=== PATIENT | female | born 1995 | race African-American/Black ===

== ENCOUNTER 2020-12-15 19:02 | Emergency (ER) | payer BC, OTHER, SELFPAY ==
--- NOTE | 2020-12-15 19:08 | ED.URI ---
HPI - URI/Sore Throat General Chief Complaint: Upper Respiratory Infection Stated Complaint: Chest Pain,Difficulty Breathing Time Seen by Provider: 12/15/20 19:08 Source: patient and RN notes reviewed History of Present Illness HPI Narrative: Patient is a 25-year-old female who presents the urgent care with complaints of shortness of breath and cough. Patient states that she has had these issues for the last month and has been in the hospital 3 different times for her symptoms. Patient states her PCP is currently working her up for a possible hormonal imbalance or autoimmune disorder. Patient states that she has a blood work on Tuesday and will follow up with her PCP as scheduled. Patient states that the symptoms are not new but are recurrent. Patient states that she was just discharged from the hospital November 27. Denies of any wheezing or cough. Currently denies of chest pain. Patient states that when she experiences the chest pain that is substernal. Patient states she is also had an increase in her heart rate. States that her cardiac work-up at the hospital was negative and they did not place her on any heart medications. Patient was placed on ibuprofen for her pains and nausea medication because she is not eating . No other acute complaints. No acute distress noted. Patient aware of the plan of care. Some parts of this dictation were generated by voice recognition software and may contain typographical and/or grammatical inaccuracies. Related Data Home Medications Medication Instructions Recorded Confirmed Nausea Med. 12/15/20 Allergies Allergy/AdvReac Type Severity Reaction Status Date / Time No Known Allergies Allergy Verified 12/15/20 19:06 Review of Systems Review of Systems: Narrative: CONSTITUTIONAL: Denies fever, chills, or sweats. EYES: Denies visual changes, redness, or discharge. ENT: Denies rhinorrhea, congestion, sore throat, or otalgia. CARDIOVASCULAR: Reports of intermittent chest pains with tachycardia RESPIRATORY: Denies cough. Reports of dyspnea GASTROINTESTINAL: Denies abdominal pain, nausea, vomiting, or diarrhea. GENITOURINARY: Denies dysuria or hematuria. SKIN: Denies rash or itching. MUSCULOSKELETAL: Denies back pain, joint pain, or myalgia. NEUROLOGIC: Denies headache, numbness, or weakness. All other systems reviewed are negative, except as documented in HPI. PMFSH Comments At the time of my signature, I reviewed and agree with the nursing past medical, surgical, social, and family history. There is no relevant family history pertinent to the patient complaint. Exam Narrative: Exam Narrative: GENERAL: This is a well-nourished, well-developed patient, in no apparent distress. HEAD: normocephalic, atraumatic. EYES: PERRL. Sclera clear/white. Vision is grossly intact. EARS: External ears normal NOSE: External nose normal with no obvious nasal discharge, nares without redness, no rhinorrhea. THROAT: Mucous membranes moist NECK: Neck supple CARDIOVASCULAR: Tachycardic, sinus rhythm without murmurs, gallops, or rubs. Mild substernal tenderness RESPIRATORY: Clear to auscultation. Breath sounds equal bilaterally. No wheezes, rales, or rhonchi. SKIN: warm, intact with no suspicious lesions or rash, good texture and turgor. NEURO: awake, alert, and oriented to person, place and time. There were no obvious focal neurologic abnormalities. EXTREMITIES: No clubbing, cyanosis, or edema. Course Vital Signs Vital signs: Vital Signs Temperature 97.3 F L 12/15/20 19:18 Pulse Rate 111 H 12/15/20 19:18 Respiratory Rate 18 12/15/20 19:18 Blood Pressure 133/86 12/15/20 19:18 Pulse Oximetry 100 12/15/20 19:18 Temperature 97.3 F L 12/15/20 19:20 Pulse Rate 111 H 12/15/20 19:20 Respiratory Rate 18 12/15/20 19:20 Blood Pressure 133/86 12/15/20 19:20 Pulse Oximetry 100 12/15/20 19:20 Reviewed MDM - URI/Sore Throat MDM Narrative Medical decision making narrative
[2020-12-15 19:18] VITALS: BP 133/86; PULSE 111; RESP 18; TEMP 36.3; O2SAT 100
--- NOTE | 2020-12-15 19:19 | ECG_ITS ---
Measurements Intervals [place] Rate: 85 P: 72 GA: 183 QRS: 55 QRSD: 76 T: 50 QT: 345 QTc: 411 Interpretive Statements SINUS RHYTHM POSSIBLE LEFT ATRIAL ENLARGEMENT INCOMPLETE RIGHT BUNDLE BRANCH BLOCK BORDERLINE T WAVE ABNORMALITY- ANTERIOR LEADS BASELINE WANDER- V3 BORDERLINE ECG Electronically Signed On 12-16-2020 16:23:05 CDT by Zay Ball D.O.
[2020-12-15 19:20] VITALS: BP 133/86; PULSE 111; RESP 18; TEMP 36.3; O2SAT 100
== END 2020-12-15 19:38 | disposition home or self-care (01) ==
PROVIDERS: Emergency Provider Nurse Practitioner Family
DX: F41.9 Anxiety disorder, unspecified (principal); R06.02 Shortness of breath
CPT/HCPCS: 93005; 99203; G0463

== ENCOUNTER 2021-12-24 16:07 | Emergency (ER) | payer BC, OTHER, SELFPAY ==
[2021-12-24] VITALS (10 sets, daily range): BP systolic 101–116; BP diastolic 69–83; PULSE 75–84; RESP 14–16; TEMP 37.6; O2SAT 92–100
--- NOTE | ~2021-12-24 | XR_ITS ---
XR chest 2V DATE: 12/24/2021 17:12 INDICATION: Chest pain, fever, chills. Covid-positive. TECHNIQUE: AP and lateral chest COMPARISON: None FINDINGS: Normal heart size. No hilar or mediastinal enlargement. No pulmonary infiltrate or consolid ation, pleural effusion or pulmonary vascular congestion or pneumothorax. IMPRESSION: No active cardiopulmonary disease Reviewed, dictated and finalized at location B.
--- NOTE | 2021-12-24 16:43 | ECG_ITS ---
Measurements Intervals [place] Rate: 86 P: 89 VA: 171 QRS: 74 QRSD: 92 T: 0 QT: 334 QTc: 400 Interpretive Statements SINUS RHYTHM BORDERLINE T WAVE ABNORMALITY- DIFFUSE LEADS BORDERLINE ECG Electronically Signed On 12-24-2021 20:21:05 CDT by Zay Ball D.O.
--- NOTE | 2021-12-24 17:16 | PC.NURSE ---
unsuccessfully attempted to obtain blood sample in triage.
--- NOTE | 2021-12-24 21:38 | ED.CHESTPAIN ---
HPI - Chest Pain General Chief Complaint: Chest Pain <QIANA Crockett Last Filed: 12/25/21 02:44> Stated Complaint: Chest Pain, COVID + <QIANA Crockett Last Filed: 12/25/21 02:44> Time Seen by Provider: 12/24/21 21:09 <QIANA Crockett Last Filed: 12/25/21 02:44> History of Present Illness HPI narrative: Patient is a 26-year-old female here for evaluation of body aches, fevers, generalized fatigue, cough, nausea and vomiting for the past 2 days. Patient took a COVID test at home that was positive yesterday. She is not vaccinated against COVID. States that she came in today because of some chest tightness in the center of her chest, for which she attempted ibuprofen but was unable to keep it down. Denies any abdominal pain, constipation, leg cramping, shortness of breath, syncope, use of oral contraceptives, smoking history. <QIANA Crockett Last Filed: 12/25/21 02:44> Related Data Allergies/Adverse Reactions: Allergies Allergy/AdvReac Type Severity Reaction Status Date / Time No Known Allergies Allergy Verified 12/24/21 16:49 <QIANA Crockett Last Filed: 12/25/21 02:44> Review of Systems Review of Systems: Gen.: Reports fevers Eyes: Denies eye pain or visual change ENT: Reports congestion Respiratory: Reports cough CV: Reports chest pain GI: Reports nausea and vomiting. Denies abdominal pain or diarrhea denies burning, urgency, frequency or hematuria Musculoskeletal: Denies back pain or muscle pain Neuro: Denies numbness, tingling, weakness or focal weakness Skin: Denies rash Except as documented, all other systems reviewed and negative <QIANA Crockett Last Filed: 12/25/21 02:44> Exam Narrative: APPEARANCE: Uncomfortable appearing. Head: Normocephalic and atraumatic. EYES: PERRLA/EOMI, conjunctivae clear NOSE: No nasal drainage EARS: External ear normal in appearance THROAT: Oropharynx is clear. Mucous membranes are moist. NECK: Supple. No adenopathy, no masses. RESPIRATORY: Airway patent, respirations nonlabored. Clear to auscultation bilaterally, no rales, rhonchi, wheezing. CARDIOVASCULAR: Regular rate and rhythm without murmurs, rubs, or gallops. ABDOMINAL: Normoactive bowel sounds. Soft, nontender, nondistended. No rebound tenderness or guarding. MUSCULOSKELETAL: Extremities are warm and well-perfused. Moves all extremities well. No edema. NEURO: Normal speech. No focal neurologic deficits. SKIN: Skin is warm and dry. No rashes. PSYCHIATRIC: Normal affect/mood. <Tammi Hammer PA-C - Last Filed: 12/25/21 02:44> Course NETWORK SUPPORT ANALYST/PA Physician Supervision For this patient encounter, I reviewed the NETWORK SUPPORT ANALYST or PA documentation, treatment plan, and medical decision making <Guilherme Santos MD - Last Filed: 12/25/21 03:28> Vital Signs Vital signs: Vital Signs Temperature 99.7 F H 12/24/21 16:44 Pulse Rate 84 12/24/21 16:44 Respiratory Rate 14 12/24/21 16:44 Blood Pressure 105/69 12/24/21 16:44 Pulse Oximetry 100 12/24/21 16:44 Oxygen Delivery Room Air 12/24/21 16:44 Temperature 99.7 F H 12/24/21 16:44 Pulse Rate 79 12/24/21 23:32 Respiratory Rate 16 12/24/21 23:32 Blood Pressure 101/74 12/24/21 23:31 Pulse Oximetry 99 12/24/21 23:32 Oxygen Delivery Room Air 12/24/21 16:44 <Tammi Hammer PA-C - Last Filed: 12/25/21 02:44> Vital Signs Temperature 99.7 F H 12/24/21 16:44 Pulse Rate 84 12/24/21 16:44 Respiratory Rate 14 12/24/21 16:44 Blood Pressure 105/69 12/24/21 16:44 Pulse Oximetry 100 12/24/21 16:44 Oxygen Delivery Room Air 12/24/21 16:44 Temperature 99.7 F H 12/24/21 16:44 Pulse Rate 79 12/24/21 23:32 Respiratory Rate 16 12/24/21 23:32 Blood Pressure 101/74 12/24/21 23:31 Pulse Oximetry 99 12/24/21 23:32 Oxygen Delivery Room Air 12/24/21 16:44 <Guilherme Santos MD - [place]
[2021-12-24] MEDS: ONDANSETRON INJ 4 MG/2 ML VIAL IV PUSH (22:11)
[2021-12-24] MEDS: SODIUM CHLORIDE 0.9% IV 1,000 ML 999 ML IV CONT (22:11)
[2021-12-24 22:19] LABS: Basophils Percent Auto 0.9 % (0.2-1.2); Eosinophils Percent Auto 0.3 % (0-4.4); Hematocrit 40.2 % (37.0-47.0); Hemoglobin 12.2 g/dL (12.0-15.0); Lymphocytes Absolute Auto 1.71 K/mm3 (0.9-3.2); Lymphocytes Percent Auto 49.3 % (18.3-44.2); Mean Corpuscular HGB Conc 30.3 g/dl (32-36); Mean Corpuscular Volume 82.4 fl (80-100); Monocytes Absolute Auto 0.6 K/mm3 (0.1-0.6); Monocytes Percent Auto 15.9 % (2.6-8.5); Neutrophils Absolute Auto 1.2 K/mm3 (1.3-6.7); Neutrophils Percent Auto 33.6 % (45.5-73.1); Platelet Count Result 264 k/mm3 (150-375); Red Blood Count 4.88 M/mm3 (4.2-5.4); Red Cell Distribution Width 16.2 % (11.5-14.5); White Blood Count 3.5 K/mm3 (4.5-10.0)
[2021-12-24 22:31] LABS: Prothrombin Time 13.2 Seconds (11.1-14.7)
[2021-12-24 22:53] LABS: Partial Thromboplastin Time 30.4 SECONDS (22.3-36.8)
[2021-12-24 23:06] LABS: Alanine Aminotransferase 14 U/L (6-35); Albumin Level 3.9 g/dL (3.5-5.1); Alkaline Phosphatase 67 U/L (38-126); Anion Gap 5 mmol/L (8-16); Aspartate Amino Transferase 28 U/L (14-36); Bilirubin,Total 0.7 mg/dL (0.2-1.3); Blood Urea Nitrogen 13 mg/dL (7-17); Calcium 8.1 mg/dL (8.4-10.2); Carbon Dioxide 27 mmol/L (22-30); Chloride 106 mmol/L (98-107); Estimated CRCL calculation 114 ml/min; Estimated Glomerular Filt Rate > 60; Glucose 84 mg/dL (65-110); Lipase 131 U/L (23-300); Potassium 3.4 mmol/L (3.4-5.0); Sodium 138 mmol/L (137-145)
[2021-12-24 23:17] LABS: Troponin I < 0.012 ng/mL (0.000-0.034)
[2021-12-24] MEDS: ACETAMINOPHEN 500 MG TABLET 1000 MG PO (23:41)
--- NOTE | 2021-12-24 23:57 | PC.NURSE ---
Pt able to keep medications, fluids and crackers down. PO challenge succesful
== END 2021-12-24 23:58 | disposition home or self-care (01) ==
PROVIDERS: Emergency Medicine; Emergency Provider Emergency Medicine
DX: U07.1 COVID-19 (principal); Z28.310 Unvaccinated for COVID-19; R94.31 Abnormal electrocardiogram [ECG] [EKG]
CPT/HCPCS: 36415; 71046; 80053; 83690; 84484; 85025; 85610; 85730; 93005; 96361; 96374; 99284; A9270; J2405; J7030

== ENCOUNTER 2022-06-18 08:39 | Emergency (ER) | payer BC, SELFPAY ==
--- NOTE | ~2022-06-18 | US_ITS ---
EXAMINATION: US venous doppler [facility] DATE: 06/18/2022 09:25 INDICATION: Lower limb swelling TECHNIQUE: Trevizo scale images without and with compression and Doppler images of the bilateral lower e xtremity veins were obtained. COMPARISON: None FINDINGS: The right common femoral vein, profunda femoral vein, femoral vein, popliteal vein, peroneal trunk, p osterior tibial veins, and greater saphenous vein are patent. The left common femoral vein, profunda femoral vein, femoral vein, popliteal vein, peroneal trunk, po sterior tibial veins, and greater saphenous vein are patent. IMPRESSION: 1. Patent bilateral lower extremity veins. No evidence of deep venous thrombosis. Reviewed, dictated and finalized at location B. ENTIALS SPECIALIST IMPRESSION: 1. Patent bilateral lower extremity veins. No evidence of deep venous thrombosi s.
--- NOTE | ~2022-06-18 | XR_ITS ---
EXAMINATION: XR chest 2V DATE: 06/18/2022 10:29 INDICATION: Leg edema. TECHNIQUE: Frontal and lateral views of the chest were obtained. COMPARISON: Chest 2 views 12/24/2021 FINDINGS: The chest demonstrates clear lungs without pneumonia, pleural effusion, or pneumothorax. Th e heart size is normal. IMPRESSION: 1. No acute cardiopulmonary disease. Reviewed, dictated and finalized at location A. TRICAL AUTOMATION ENGINEER
[2022-06-18 08:41] VITALS: BP 122/76; PULSE 70; RESP 14; TEMP 36.6; O2SAT 100
--- NOTE | 2022-06-18 09:05 | PC.NURSE ---
Patient to ultrasound
--- NOTE | 2022-06-18 10:06 | ECG_ITS ---
Measurements Intervals [place] Rate: 58 P: 50 [place]: 202 QRS: 37 QRSD: 90 T: 32 QT: 411 QTc: 404 Interpretive Statements SINUS BRADYCARDIA INCOMPLETE RIGHT BUNDLE BRANCH BLOCK BASELINE ARTIFACT- I, II, AVR, AVL, AVF BORDERLINE ECG COMPARED TO ECG 12/24/2021 16:51:37 SINUS BRADYCARDIA NOW PRESENT Electronically Signed On 06-18-2022 10:43:16 FREELANCE INTERPRETER/TRANSLATOR by Zay Ball D.O.
--- NOTE | 2022-06-18 10:16 | ED.EXTPRO ---
HPI - Extremity Problem General Chief complaint: Extremity Problem,Nontraumatic Stated complaint: foot swelling Time Seen by Provider: 06/18/22 09:46 History of Present Illness HPI Narrative: 27-year-old female presenting to the emergency department for evaluation of lower extremity swelling. Patient states over the course of the last week she has had bilateral lower extremity edema. Patient states for her job she does sit often. Patient states that the symptoms do improve when she elevates her legs but did not improve with ambulation. Patient reports pain in her feet and posterior calf bilaterally. Patient denies any associated chest pain or shortness of breath. Patient denies any prior history of PE or DVT. Patient denies any previous cardiac history. Related Data Allergies Allergy/AdvReac Type Severity Reaction Status Date / Time No Known Allergies Allergy Verified 12/24/21 16:49 Review of Systems Review of Systems: CONSTITUTIONAL: Denies fever, chills, or sweats. EYES: Denies visual changes, redness, or discharge. ENT: Denies rhinorrhea, congestion, sore throat, or otalgia. CARDIOVASCULAR: see HPI RESPIRATORY: Denies cough or dyspnea. GASTROINTESTINAL: Denies abdominal pain, nausea, vomiting, or diarrhea. GENITOURINARY: Denies dysuria or hematuria. SKIN: Denies rash or itching. MUSCULOSKELETAL: See HPI NEUROLOGIC: Denies headache, numbness, or weakness. Exam Narrative: APPEARANCE: Well appearing, no pain, no distress, well-nourished. HEAD: normocephalic, atraumatic. EYES: PERRLA/EOMI, conjunctivae clear. NOSE: Normal no drainage NECK: Supple. No adenopathy, no masses. RESPIRATORY: Airway patent, respirations nonlabored. Clear to auscultation bilaterally, no rales, rhonchi, wheezing. CARDIOVASCULAR: Regular rate and rhythm without murmurs rubs or gallops. ABDOMINAL: Soft, nontender, nondistended, normal bowel sounds MUSCULOSKELETAL: Lower extremity edema of bilateral lower extremities. Tenderness to posterior calves. No localized erythema. No evidence of cellulitis. NEURO: Alert. Cranial nerves II through XII intact. Grossly intact SKIN: Warm, dry. Normal Color Course Course Emergency Course: Patient denies any chest pain or shortness of breath. Patient is not tachycardic nor hypoxic. Patient is afebrile with no leukocytosis. Patient's BNP is not elevated. Chest x-ray shows no acute cardiopulmonary normality. Ultrasound showed no evidence for DVTs bilaterally. Differential diagnosis for patient's edema does include but is not limited to CHF, DVT, idiopathic edema, cellulitis. Patient's work-up shows no evidence of infection. Negative for DVT. Suspect idiopathic edema as the underlying cause for her current edema. Patient was provided a small prescription for Lasix and prescribed and was encouraged to have follow-up with her primary care physician. All questions concerns were addressed and patient was comfortable to plan. Vital Signs Vital signs: Vital Signs Temperature 97.8 F 06/18/22 08:41 Pulse Rate 70 06/18/22 08:41 Respiratory Rate 14 06/18/22 08:41 Blood Pressure 122/76 06/18/22 08:41 Pulse Oximetry 100 06/18/22 08:41 Oxygen Delivery Room Air 06/18/22 08:41 Temperature 97.8 F 06/18/22 08:41 Pulse Rate 75 06/18/22 11:46 Respiratory Rate 18 06/18/22 11:46 Blood Pressure 120/78 06/18/22 11:46 Pulse Oximetry 100 06/18/22 11:46 Oxygen Delivery Room Air 06/18/22 08:41 MDM - Extremity (Nontraumatic) Lab Data 06/18/22 10:31 06/18/22 10:31 Labs: Lab Results 06/18/22 06/18/22 Range/Units 10:31 10:31 WBC 5.9 (4.5-10.0) K/mm3 RBC 4.43 (4.2-5.4) M/mm3 Hgb 11.3 L (12.0-15.0) g/dL Hct 36.5 L (37.0-47.0) % MCV 82.4 (80-100) fl MCH 25.5 L (26-34) pg MCHC 31.0 L (32-36) g/dl RDW 16.9 H (11.5-14.5) % Plt Count 334 (150-375) k/mm3 MPV 10.4 (7.4-10.4) fl Immature Gran % (Auto) 0.2
[2022-06-18 10:40] VITALS: BP 119/84; PULSE 64; RESP 18; O2SAT 99
[2022-06-18 10:44] LABS: Basophils Absolute Auto 0.1 K/mm3 (0.0-0.1); Basophils Percent Auto 1.4 % (0.2-1.2); Eosinophils Absolute Auto 0.3 K/mm3 (0-0.3); Eosinophils Percent Auto 4.2 % (0-4.4); Hematocrit 36.5 % (37.0-47.0); Hemoglobin 11.3 g/dL (12.0-15.0); Immature Granulocyte Absolute 0.01 K/mm3 (0.00-0.031); Immature Granulocyte Percent A 0.2 % (0-0.5); Lymphocytes Absolute Auto 2.33 K/mm3 (0.9-3.2); Lymphocytes Percent Auto 39.6 % (18.3-44.2); Mean Corpuscular Hemoglobin 25.5 pg (26-34); Mean Corpuscular Volume 82.4 fl (80-100); Mean Platelet Volume 10.4 fl (7.4-10.4); Monocytes Absolute Auto 0.4 K/mm3 (0.1-0.6); Neutrophils Absolute Auto 2.8 K/mm3 (1.3-6.7); Neutrophils Percent Auto 47.6 % (45.5-73.1); Platelet Count Result 334 k/mm3 (150-375); Red Blood Count 4.43 M/mm3 (4.2-5.4); Red Cell Distribution Width 16.9 % (11.5-14.5); White Blood Count 5.9 K/mm3 (4.5-10.0)
[2022-06-18 10:56] LABS: Alanine Aminotransferase 17 U/L (6-35); Albumin Level 4.6 g/dL (3.5-5.1); Alkaline Phosphatase 66 U/L (38-126); Anion Gap 5 mmol/L (8-16); Aspartate Amino Transferase 24 U/L (14-36); Bilirubin,Total 0.6 mg/dL (0.2-1.3); Blood Urea Nitrogen 10 mg/dL (7-17); Calcium 8.9 mg/dL (8.4-10.2); Carbon Dioxide 29 mmol/L (22-30); Chloride 102 mmol/L (98-107); Estimated CRCL calculation 98 ml/min; Estimated Glomerular Filt Rate > 60; Glucose 90 mg/dL (65-110); Potassium 3.7 mmol/L (3.4-5.0); Sodium 136 mmol/L (137-145)
[2022-06-18 11:04] LABS: NT Pro B Type Natriuretic Pept 32 pg/mL (19.9-100)
[2022-06-18 11:46] VITALS: BP 120/78; PULSE 75; RESP 18; O2SAT 100
== END 2022-06-18 11:46 | disposition home or self-care (01) ==
PROVIDERS: Emergency Provider Emergency Medicine; PCP Physician Assistant
DX: R60.0 Localized edema (principal); R00.1 Bradycardia, unspecified; I45.10 Unspecified right bundle-branch block
CPT/HCPCS: 36415; 71046; 80053; 83880; 85025; 93005; 93970; 99284

== ENCOUNTER 2022-11-14 07:14 | Emergency (ER) | payer BC, SELFPAY ==
--- NOTE | ~2022-11-14 | US_ITS ---
EXAMINATION: US pelvic complete w TV DATE: 11/14/2022 09:26 INDICATION: Pelvic pain for one week Comparison:No prior studies for comparison. TECHNIQUE: Multiple transabdominal and endovaginal sonographic images of the pelvis performed. FINDINGS: The uterus measures 10 x 4.5 x 5.9 cm. The endometrial complex measures 11 mm. The right ovary measures 3.4 x 1.6 x 1.9 cm. and the left ovary measures 3.4 x 2.3 x 2.2 cm. There is a left ovarian cyst measuring 2.1 cm. There are small follicles in each ovary. Normal doppler signal in both ovaries. There is no free fluid in the pelvis. There are no abnormal masses seen on either side. IMPRESSION: 1. Left ovarian cyst measuring 2.1 cm. Reviewed, dictated and finalized at location A.
[2022-11-14 07:17] VITALS: BP 126/83; PULSE 79; RESP 16; TEMP 36.6; O2SAT 100
[2022-11-14 07:48] LABS: Add Urine Microscopic? YES; Appearance Urine Clear (Clear); Bacteria Urine None Seen /hpf; Bilirubin Urine Negative (Negative); Blood Urine Trace (Negative); Color Urine Yellow (Yellow); Glucose Urine UA Negative (Negative); Ketones Urine Trace mg/dL (Negative); Leukocyte Esterase Ur 1+ LEU/UL (Negative); Nitrate Urine Negative (Negative); Non Pathogenic Casts 0-2; Protein Urine Negative (Negative); RBC Urine 0-2 /hpf (0-2); Specific Grav Ur 1.027 (1.001-1.035); Squamous Epithelial Cell Urine Few /hpf (Few); pH Urine 5.5 (5.0-9.0)
[2022-11-14 08:52] LABS: Basophils Absolute Auto 0.1 K/mm3 (0.0-0.1); Basophils Percent Auto 1.1 % (0.2-1.2); Eosinophils Absolute Auto 0.2 K/mm3 (0-0.3); Eosinophils Percent Auto 3.4 % (0-4.4); Hematocrit 34.8 % (37.0-47.0); Hemoglobin 10.8 g/dL (12.0-15.0); Immature Granulocyte Absolute 0.01 K/mm3 (0.00-0.031); Immature Granulocyte Percent A 0.2 % (0-0.5); Lymphocytes Absolute Auto 2.44 K/mm3 (0.9-3.2); Lymphocytes Percent Auto 38.2 % (18.3-44.2); Mean Corpuscular Hemoglobin 25.8 pg (26-34); Mean Corpuscular Volume 83.3 fl (80-100); Mean Platelet Volume 11.9 fl (7.4-10.4); Monocytes Absolute Auto 0.5 K/mm3 (0.1-0.6); Monocytes Percent Auto 8.5 % (2.6-8.5); Neutrophils Absolute Auto 3.1 K/mm3 (1.3-6.7); Neutrophils Percent Auto 48.6 % (45.5-73.1); Platelet Count Result 295 k/mm3 (150-375); Red Blood Count 4.18 M/mm3 (4.2-5.4); Red Cell Distribution Width 16.8 % (11.5-14.5); White Blood Count 6.4 K/mm3 (4.5-10.0)
[2022-11-14] MEDS: ONDANSETRON HCL ODT 4 MG TABLET PO (08:52)
[2022-11-14] MEDS: HYDROcodone/acetaminophen (*CRX) 5-325 MG TABLET 1 TAB PO (08:52)
[2022-11-14 09:00] LABS: Alanine Aminotransferase 18 U/L (6-35); Albumin Level 4.3 g/dL (3.5-5.1); Alkaline Phosphatase 61 U/L (38-126); Anion Gap 7 mmol/L (8-16); Aspartate Amino Transferase 24 U/L (14-36); Bilirubin,Total 0.9 mg/dL (0.2-1.3); Blood Urea Nitrogen 14 mg/dL (7-17); Calcium 8.9 mg/dL (8.4-10.2); Carbon Dioxide 27 mmol/L (22-30); Chloride 104 mmol/L (98-107); Estimated CRCL calculation 133 ml/min; Estimated Glomerular Filt Rate > 60; Glucose 89 mg/dL (65-110); Potassium 3.9 mmol/L (3.4-5.0); Sodium 138 mmol/L (137-145)
--- NOTE | 2022-11-14 11:08 | ED.GENADULT ---
HPI - General Adult General Chief complaint: Urogenital-Female Stated complaint: pelvic pain/bleeding Time Seen by Provider: 11/14/22 07:36 History of Present Illness HPI narrative: Patient is a 27-year-old female who presents ER with lower pelvic pain. Ongoing for 2 days. Associated with vaginal bleeding with discharge. Reports she had her menstrual period 10 days ago that lasted for 3 days then she was normal. She reports back in September she had gonorrhea/chlamydia/trichomoniasis. She had a test of cure for the gonorrhea and chlamydia after being treated appropriately. She was tested for trichomonas again she was still positive. Patient has had no sexual intercourse since original diagnosis of STI. She denies any fevers or chills or sweats. No known history of ovarian cyst. No history of kidney stones. Denies alleviating factors. Related Data Allergies Allergy/AdvReac Type Severity Reaction Status Date / Time No Known Allergies Allergy Verified 11/14/22 07:30 Review of Systems Review of Systems: All systems reviewed & are unremarkable except as noted in HPI and below Constitutional: Constitutional: Denies chills and Denies fever(s) ENT: Denies nasal congestion and Denies sore throat Cardiovascular: Cardiovascular: Denies chest pain, Denies rapid heart rate and Denies radiating jaw, neck or arm pain Respiratory: Respiratory: Denies cough and Denies dyspnea Gastrointestinal: Gastrointestinal: Reports abdominal pain, Denies nausea and Denies vomiting Genitourinary: Genitourinary: Reports abnormal vaginal bleeding, Denies dysuria, Reports pelvic pain and Reports vaginal discharge PMFSH Past Medical History Medical History (Updated 11/14/22 @ 18:09 by Maycol Rausch MD) Healthy female adult Surgical History Surgical History (Updated 11/14/22 @ 18:09 by Maycol Rausch MD) No history of previous surgery Exam Narrative: GENERAL: Well-appearing, well-nourished, and in no acute distress. HEAD: Normocephalic, atraumatic. EYES: PERRL and EOMI. ENT: Mucous membranes moist. CHEST: Clear to auscultation. No respiratory distress. HEART: Regular rate and rhythm. Normal peripheral pulses. ABDOMEN: Soft, palpation bilateral lower quadrants without guarding, nondistended. : Normal-appearing external genitalia. Rectal exam with moderate amount of vaginal discharge without vaginal bleeding. Normal-appearing cervix with closed cervical os. No CMT EXTREMITIES: Normal range of motion. No edema. SKIN: Warm, dry, no rash. NEURO: Alert and oriented x3. PSYCH: Normal mood and affect. Course Course Emergency Course: Patient resting comfortably. Informed of results. Trichomoniasis testing negative. Patient will be treated for bacterial vaginosis. Vital Signs Vital signs: Vital Signs Temperature 97.9 F 11/14/22 07:17 Pulse Rate 79 11/14/22 07:17 Respiratory Rate 16 11/14/22 07:17 Blood Pressure 126/83 11/14/22 07:17 Pulse Oximetry 100 11/14/22 07:17 Oxygen Delivery Room Air 11/14/22 07:17 Temperature 97.9 F 11/14/22 07:17 Pulse Rate 70 11/14/22 11:16 Respiratory Rate 18 11/14/22 11:16 Blood Pressure 103/76 11/14/22 11:16 Pulse Oximetry 98 11/14/22 11:16 Oxygen Delivery Room Air 11/14/22 07:17 Medical Decision Making Vital Signs Vital Signs: Vital Signs Temperature 97.9 F 11/14/22 07:17 Pulse Rate 79 11/14/22 07:17 Respiratory Rate 16 11/14/22 07:17 Blood Pressure 126/83 11/14/22 07:17 Pulse Oximetry 100 11/14/22 07:17 Oxygen Delivery Room Air 11/14/22 07:17 Temperature 97.9 F 11/14/22 07:17 Pulse Rate 70 11/14/22 11:16 Respiratory Rate 18 11/14/22 11:16 Blood Pressure 103/76 11/14/22 11:16 Pulse Oximetry 98 11/14/22 11:16 Oxygen Delivery Room Air 11/14/22 07:17 Lab Data 11/14/22 08:30 11/14/22 08:42 Labs: Lab Results 11/14/22 11/14/22 11/14/22 Range/Uni
[2022-11-14 11:16] VITALS: BP 103/76; PULSE 70; RESP 18; O2SAT 98
== END 2022-11-14 11:18 | disposition home or self-care (01) ==
PROVIDERS: Emergency Provider Emergency Medicine; PCP Physician Assistant
DX: N76.0 Acute vaginitis (principal); N83.202 Unspecified ovarian cyst, left side
CPT/HCPCS: 36415; 76830; 76856; 80053; 81001; 81025; 85025; 87086; 87088; 87808; 99284; A9270

== ENCOUNTER 2024-12-20 19:56 | Emergency (ER) | payer SELFPAY ==
--- NOTE | ~2024-12-20 | XR_ITS ---
EXAMINATION: XR chest 2V Exam Date/Time: 12/20/2024 20:52 CDT HISTORY: chest pain Comparison: 06/18/2022. RESULT: Lines, tubes, and devices: None. Lungs and pleura: Clear. Cardiomediastinal silhouette: Stable. Other: No acute osseous or upper abdominal finding. IMPRESSION: No acute cardiopulmonary process. Reviewed, dictated and finalized at location K.
--- OUTSIDE RECORDS SUMMARY | 2024-12-20 19:58 | XMS_ITS | Clinical Summary ---
Author Organization [facility] [address] [facility] Address [address] [place] [address] Care Team Providers Care Supervisor Pipe Manufacture Name Role Phone Leo Palomares MD Unavailable [phone] Janna Guthrie Primary Care Provider [phone] Allergies No known active allergies Medications gabapentin (NEURONTIN) 600 mg tablet Take 1 tablet (600 mg total) by mouth nightly 90 tablet 09/28/2021 Active Active Problems Problem Noted Date Diagnosed Date Fibromyalgia 03/05/2021 Overview (03/12/2021): US left hand/wrist (03/10/21): Grade 1 effusion in the 5th MCP and 3rd PIP joint on examination. Marked synovial thickening in the 2nd PIP joint. Moderate synovial thickening in the 3rd PIP joint. Hyperextension of the 5th MCP joint is appreciated on US exam. Assessment & Plan (09/28/2021 1:07 PM CDT): At this time there is not evidence to suggest underlying CTD or inflammatory arthritis, favor fibromyalgia and hypermobility as the source of her pain complaints. Notes improvement with gabapentin 600 mg qHS and would like to continue with this dose. She will continue with the HEP and going to the gym. Plan for follow up in 4 months or sooner as needed. Assessment & Plan (08/03/2021 12:59 PM MATE RELIEF): At this time there is not evidence to suggest underlying CTD or inflammatory arthritis, favor fibromyalgia and hypermobility as the source of her pain complaints. She was working with PT and noted significant benefit, unfortunately was unable to continue with this after returning to school due to scheduling conflicts. She will continue with the HEP and has now returned to the gym. Lyrica helped but caused unbearable side effects. At this time, will instead begin trial of gabapentin starting at 300 mg qHS, will slowly titrate to 900 mg qHS as needed/tolerated. In the future may consider adding daytime dose. Continue with routine exercise. Plan for follow up in 8 weeks or sooner as needed. Assessment & Plan (05/04/2021 2:53 PM MATE RELIEF): At this time there is not evidence to suggest underlying CTD or inflammatory arthritis, favor fibromyalgia and hypermobility as the source of her pain complaints. She was working with PT and noted significant benefit, unfortunately was unable to continue with this after returning to school due to scheduling conflicts. She will continue with the HEP. Lyrica has helped her pain but caused unbearable side effects; she is interested in trying a lower dose of Lyrica. Will Rx 25 mg capsules, first try decreasing to 50 mg bid and if this still causes side effects then will decrease to 25 mg bid. Plan for follow up in 6-8 weeks or sooner as needed. Assessment & Plan (03/16/2021 1:25 PM CDT): 25yoF presents for a constellation of symptoms including widespread pain and fatigue. She has previously undergone an extensive workup by her PCP and [facility]ology which did not reveal evidence to suggest any underlying rheumatologic diagnosis. She is noted to have widespread soft tissue tenderness on exam as well as hypermobility. An ultrasound of her L hand/wrist did not reveal any significant inflammatory changes. At this time there is not evidence to suggest underlying CTD or inflammatory arthritis, favor fibromyalgia and hypermobility as the source of her pain complaints. Recommend trial of PT which she has started since last visit. Discussed initiating treatment with Lyrica, potential AE reviewed, pt agreeable. Will start Lyrica 75 mg bid and plan for follow up in 6-8 weeks or sooner as needed. Assessment & Plan (03/05/2021 12:11 PM CDT): 25yoF presents for a constellation of symptoms including widespread pain and fatigue. She has previously undergone an extensive workup by her PCP and [facility] rheumatology which did not reveal evidence to suggest any underlying rheumatologic diagnosis. She is noted to have widespread soft tissue tenderness on exam as well as hypermobility. At this time have a low suspicion for underlying CTD or inflammatory arthritis, favor fibromyalgia and hypermobility as the source of her pain complaints. To further evaluate for inflammatory changes, will obtain hand ultrasound. If the ultrasound is normal, then would encourage follow up with PCP for management of fibromyalgia. Recommend trial of PT which she was agreeable to, order provided. Will plan for follow up in 2 weeks to review results. Social History Tobacco Use Types Packs/Day Years Used Date Smoking Tobacco: Never Assessed Comments Unknown Sex and Gender Information Value Date Recorded Sex Assigned at Not on file Legal Sex Female 10:52 AM MATE RELIEF Gender Identity Not on file Sexual Orientation Not on file Obstetrics History Last Filed Vital Signs Vital Sign Reading Time Taken Comments Blood Pressure 110/82 09/28/2021 11:27 AM CDT Pulse 87 09/28/2021 11:27 AM CDT Temperature 36.6 C (97.8 F) 08/03/2021 11:10 AM MATE RELIEF Respiratory Rate - - Oxygen Saturation 97% 09/28/2021 11:27 AM CDT Inhaled Oxygen Concentration - - Weight 71.9 kg (158 lb 9.6 oz) 09/28/2021 11:27 AM CDT Height 167.6 cm (5' 6) 03/05/2021 10:12 AM CDT Body Mass Index 25.6 03/05/2021 10:12 AM CDT Plan of Treatment Not on file Insurance [facility] CHOICE PLUS [facility] ACCESS CHOICE [facility] Address: [address] [place] [address] Care Teams Supervisor Pipe Manufacture Relationship Specialty Start Date End Date Janna Guthrie PA [address] [place] [address] PCP - General Physician Drafter Detail 01/21/21 Leo Palomares MD [address] [place] [address] Consulting Physician Rheumatology 01/21/21
--- OUTSIDE RECORDS SUMMARY | 2024-12-20 19:58 | XMS_ITS | Data Portability ---
Author Organization [facility] [employer], Main Office Address [address] [place] [address] Assessment No assessment recorded. Plan of Treatment Reminders Order Date Submit Date Provider Last Modified By Organization Details Last Modified Time Details Appointments None recorded. Lab lipid panel, serum 2023 024 [email or web address] 4 [facility] (Lab), [address] [place], [address], 4 09:51:41 vitamin D, 1,25-dihyd mariana, serum 2023 024 [id number] 4 [facility] (Lab), [address] [place], [address], 4 09:52:00 CMP, serum or plasma 2023 024 [id number] 4 [facility] (Lab), [address] [place], [address], 4 09:52:25 TSH, serum or plasma 2023 024 [id number] 4 [facility] (Lab), [address] [place], [address], 4 09:52:41 CBC w/ auto diff 2023 024 [id number] 4 [facility] (Lab), [address] [place], [address], 4 09:52:56 glycohemog lobin, total, blood 2023 024 [id number] 4 [facility] ([facility]), [address], [place], [address], 09:53:16 Referral None recorded. Procedures None recorded. Surgeries None recorded. Imaging None recorded. Medication Orders buspirone 5 mg tablet 2023 024 [id number] 3 [facility] [address], [place], [address], 23:04:21 buspirone 5 mg tablet 2023 024 [facility] [address], [address], [place], [address], 4 22:18:27 Patient TargetsNo targets recorded. Patient InstructionsNo instructions recorded. Reason for Referral None Reported. Results Created Date Observation Date Name Description Value Unit Range Abnormal Flag Note LastModifiedBy Organization Detail LastModifiedTime 11/15/1911/14/2022 , tristan lewis etvito No observ ation record ed. [place] [id number], [place], [address], 11/15/2022 18:25:30 Result Notes None recorded. Problems Name Problem SNOMED Code Status Onset Date Resolution Date Notes Provider Name and Address Organization Details Recorded Time Fibromyalgia 042026069 Active 2021 Not Available [employer] 3 01:49:00 Anxiety 05905657 Active 2023 ELIZABETH Crabtree [address], [facility] [address], [place], [address] , [facility] [employer] 4 15:48:25 Vitamin D deficiency 16183445 Active 2023 ELIZABETH Crabtree [address] [employer] [address], [place], [address] , [facility] 4 15:41:07 Problem Notes None recorded. Medical Equipment None Reported. Allergies No known drug allergies Medications Name Sig Start Date Stop Date Status Note LastModified by Organization Details LastModified Time buspirone 5 mg tablet Take 1 tablet twice a day by oral route. active Not Available Not Available No t Available phenazopyri dine 200 mg tablet TAKE 1 TABLET BY MOUTH THREE TIMES DAILY FOR 6 DOSES NEEDED FOR PAIN. WILL TURN YOUR URINE RED 01/31 completed Not Available Not Available Not Available metronidazo le 500 mg tablet TAKE 1 TABLET BY MOUTH TWICE DAILY FOR 7 DAYS 04/26 completed Not Available Not Available Not Available promethazin e 25 mg tablet TAKE 1 TABLET BY MOUTH EVERY 4-6 HOURS NEEDED FOR NAUSEA 01/31 completed Not Available Not Available Not Available gabapentin 300 mg capsule TAKE 1 CAPSULE BY MOUTH NIGHTLY FOR 14 DAYS THEN 2 NIGHTLY FOR 14 DAYS THEN 3 NIGHTLY 04/26 completed Not Available Not Available Not Available ergocalcife rol (vitamin D2) 1,250 mcg (50,000 unit) capsule Take 1 capsule every week by oral route. active Not Available Not Available No t Available ibuprofen 600 mg tablet TAKE 1 TABLET BY MOUTH EVERY 6 HOURS NEEDED FOR PAIN 01/31 completed Not Available Not Available Not Available naproxen 500 mg tablet Take 1 tablet twice a day by oral route as needed for 90 days. 01/31 completed Not Available Not Available Not Available nitrofurant oin monohydrate /macrocryst als 100 mg capsule TAKE 1 CAPSULE BY MOUTH TWICE DAILY WITH A MEAL FOR 5 DAYS 04/26 completed Not Available Not Available Not Available duloxetine 30 mg capsule,del ayed release Take 1 capsule by mouth once daily 01/31 completed Not Available Not Available Not Available pregabalin 25 mg capsule START WITH 1 CAPSULE BY MOUTH ONCE DAILY THEN INCREASE TO 1-2 CAPSULES BY MOUTH TWICE DAILY TOLERATED 04/26 completed Not Available Not Available Not Available Vitals Date Recorded Body weight Body mass index (BMI) Body height Body temperature Heart rate Oxygen saturation Oxygen saturation in Arterial blood by Pulse oximetry Systolic And Diastolic Provider Name and Address Organization Details Last Updated DateTime 4 38483.5 2 g 27.1 kg/m2 167.64 cm 98.2 [degF] 88 /min 98 % 98 % 118/80 mm[Hg] Neel Castelan RN [facility] [employer] [facility] 4 15:07:56 Date Recorded Body height Body mass index (BMI) Body weight Body temperature Heart rate Oxygen saturation Oxygen saturation in Arterial blood by Pulse oximetry Systolic And Diastolic Provider Name and Address Organization Details Last Updated DateTime 4 167.64 cm 27.4 kg/m2 48187.7 g 97.2 [degF] 90 /min 95 % 95 % 124/80 mm[Hg] PAYTON Sage - [facility] [employer] [facility] 4 09:04:42 Date Recorded Body mass index (BMI) Body height Oxygen saturation Oxygen saturation in Arterial blood by Pulse oximetry Heart rate Body temperature Body weight Systolic And Diastolic Provider Name and Address Organization Details Last Updated DateTime 2 24.9 kg/m2 167.64 cm 99 % 99 % 76 /min 96.1 [degF] 79301.2 2 g 122/68 mm[Hg] Not Available [facility] 3 01:48:30 Date Recorded Body mass index (BMI) Body height Oxygen saturation Oxygen saturation in Arterial blood by Pulse oximetry Heart rate Body temperature Body weight Systolic And Diastolic Provider Name and Address Organization Details Last Updated DateTime 2 24.9 kg/m2 167.64 cm 98 % 98 % 72 /min 96.2 [degF] 19177.2 2 g 128/70 mm[Hg] Not Available [facility] 3 01:48:30 Social History Question Answer Notes LastModified by Organizat ion Details LastModified Time Tobacco Smoking Status Never Smoker Not Available [facility] 08/05/2022 01:47:28 If You Are , What Was Your Level Of Alcohol Consumption Prior To ? None [id number] Information not available 08/05/2022 What Is Your Level Of Caffeine Consumption? Occasional [id number] Information not available 08/05/2022 In The 14 Days Before Symptom Onset, Have You Had Close Contact With A Laboratory-confirm ed COVID-19 While That Case Was Ill? No [id number] Information not available 08/05/2022 In The 14 Days Before Symptom Onset, Have You Had Close Contact With A Person Who Is Under Investigation For COVID-19 While That Person Was Ill? No [id number] Information not available 08/05/2022 What Type Of Diet Are You Following? REGULAR [id number] Information not available 08/05/2022 Have You Ever Been Counseled For Unhealthy Alcohol Use? No [id number] Information not available 08/05/2022 Has Tobacco Cessation Counseling Been Provided? No [id number] Information not available 08/05/2022 Do You Have Any Dietary Restrictions? No [id number] Information not available 08/05/2022 Sex: Unknown Functional Status Question Answer Note LastModified by Organizat ion Details LastModified Time Do you use any illicit or recreational drugs? No [id number] Information not available 08/05/2022 Do you or have you ever used any other forms of tobacco or nicotine? No [id number] Information not available 08/05/2022 What is your level of alcohol consumption? Occasional [id number] Information not available 08/05/2022 What is your exercise level? Moderate [id number] Information not available 08/05/2022 Mental Status None recorded. Family History Nothing Reported. Medical History No medical history recorded. Gynecological History Statement/Question Response Sexually Active? Y Menses Monthly Y STIs/STDs N Current Control Method None Breast Problems no Discharge no Obstetrics History GPAL:G 0 P 0 0 0 0 Past Encounters Encounter ID Performer Location Encounter Start Date Encounter Closed Date Diagnosis/Indication Diagnosis SNOMED-CT Code Diagnosis ICD10 Code Diagnosis Note [id number] THAD Cantu [facility] Primary Care [facility] [address] [place] [address] 2022 00:00:00 2022 14:00:50 [id number] [facility] [address] [facility] [address] [facility] [place] [address] 05/24/2022 00:00:00 05/24/2022 10:05:44 [id number] ELIZABETH Crabtree [facility] Primary Care [facility] [address] [facility] [address] [place] [address] 02/01/2024 14:58:39 02/01/2024 16:00:31 Anxiety 62942398 F41.9 GÓMEZ-7(21/07 1).Discuss ed stress relievers such as going for a walk, sitting in a quiet room, listening to calming music.Will start treatment as listed below, patient will follow up in one month, sooner if needed.Den ies SI/HI.Disc ussed potential FMLA-patie nt will contact HR. Adult heal th examination 782571895 Z00.00 Discussed healthy diet and routine exercise.D iscussed annual screening labs, will order as listed below.Disc ussed routine eye and dental exams. Body mass index 25-29 - overweight 780079269 Z68.27 Discussed healthy diet and routine exercise. [id number] ELIZABETH Crabtree [facility] Primary Care [facility] [address] [facility] [place] [address] 02/02/2024 09:12:15 02/02/2024 09:56:22 [id number] ELIZABETH Crabtree [facility] Primary Care [facility] [address] [facility] [address] 03/20/2024 08:54:33 03/20/2024 09:20:41 Anxiety 75859993 F41.9 Doing much better since starting Buspirone, will continue to fill as needed.Den ies SI/HI. Health Concerns Section Related Observation LastModified by Organization Detai ls LastModified Time None Recorded Concern Status LastModified by Organization Details LastModified Time None Recorded Advance Directives Directive None Recorded Payers Insurance Date Sequence Insurance Name Policy Number Policy Ashby Covered Member ID Ashby Member ID Guarantor Name 03/20/2024 1 [place] [id number] Patricia Quintero [id number] Patricia Quintero 03/20/2024 1 [place] [id number] 3 Patricia Quintero [id number] Patricia Quintero 03/20/2024 1 *SELF PAY* Zeina Quintero Notes Date Note Type Note Provider Name and Address Organization Details Recorded Time 02/01/2024 text/html Patient is a 28 year old female that presents to the office for annual wellness. Patient reports concerns with stress and anxiety. 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 Patient reports work is majorly short staffed, her boss is awful and it has been weighing on her for a while. Patient reports by the time she gets home she is completely exhausted and overwhelmed. Patient reports it has been so bad she has considered walking out on her job however she can not financially afford to do so. Patient has been looking for a new job but nothing pays as well. 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 Patient requesting medications, FMLA or anything to help her. Denies SI/HIPatient reports she has had mild anxiety in the past but has never been on medications for it. Patient denies chest pain and shortness of breath, nausea vomiting and diarrhea. Patient reports her exercise is well balanced for the most part, knows that exercise could be better. eye-Decemberental-not UTD. fham-vsurafySRW-ag year at planned parenthoodFlu-decl inesCovid-declines Tdap-aware ELIZABETH Crabtree [address], [place], [address], [employer] 02/01/2024 22:18:55 03/20/2024 text/html Patient is a 28 year old female that presents to the office for follow up. Patient reports she is doing much better since being on the Buspirone, stress and anxiety are more controlled and she has not been having as many episodes at work. Patient's work is still awful due to poor management and being understaffed but she is actively looking for new employment (has several interviews this week). Patient denies SI/HI. Patient denies all other concerns at this time. ELIZABETH Crabtree [address], [place], [address], [employer] 03/20/2024 23:04:25 OBGyn Episode No OBEpisode recorded.
--- OUTSIDE RECORDS SUMMARY | 2024-12-20 19:58 | XMS_ITS | Clinical Summary ---
Author Organization [facility] Address [address] [place] [address] Care Team Providers Care Milieu Manager Name Role Phone Barb Orellana M Unavailable [phone] [facility] Care Provider Source Comments [facility],non-owned Affiliates and Associated Physician Practices is amultiple site organization consisting of ambulatory clinics and hospital sitesin [place], [place], [place] and [place]. This disclosure is being madepursuant to the Care Everywhere program and may not contain all information available regarding this patient. Last updated 18.[facility] Allergies No known active allergies Medications * This document contains information received from the source organization and may not represent a complete record from that organization. * Be aware that medications may not be up to date on this document. Alwaysverify current medications with the patient. ferrous sulfate 325 (65 FE) MG tablet Take 1 (one) tablet by mouth once daily 100 tablet 1 1 Active Additional Information Patient not taking.Reported on 01/21/2021 cyclobenzaprine (FLEXERIL) 10 MG tablet Take 1 (one) tablet by mouth 3 times daily as needed for Muscle Spasms 12 tablet 1 Active norethin-eth estradiol-FE (LOESTRIN FE 06/25; JUNEL FE 06/25; MICROGESTIN FE 06/25) 1-20 MG-MCG tabletIndication s:Abnormal uterine bleeding (AUB) Take 1 (one) tablet by mouth once daily 3 tablet 4 1 Active Additional Information Patient not taking.Reported on 01/21/2021 amLODIPine (NORVASC) 2.5 MG tablet Take 2.5 mg by mouth once daily Active Active Problems Problem Noted Date Diagnosed Date Depression 04/27/2013 Depression 04/27/2013 Fall 04/30/2009 Resolved Problems Problem Noted Date Diagnosed Date Resolved Date Depression 04/27/2013 04/27/2013 Immunizations Immunization Administration Dates Next Due DPT 01/11/2008 DTaP VACCINE IM (6wk-6yrs) 01/17/2002,,01/24/1997,1996,09/20 HEP B VACCINE, PED/ADOL 08/19/1997,1996, HIB BOOSTER 08/19/1997,01/24/1997,1996 MENINGOCOCAL MENINGITIS 01/11/2008 MMR 01/17/2002,08/19/1997 POLIO IPV 01/17/2002,01/24/1997,1996 ,1996 TDAP (7yrs+) 04/30/2009 Family History Medical History Relation Name Comments Arthritis - Osteo Maternal Grandfather Arthritis - Rheumatoid Maternal Grandfather Arthritis - Osteo Mother Depression Mother Migraine Mother Relation Name Status Comments Maternal Grandfather Mother Social History Tobacco Use Types Packs/Day Years Used Date Smoking Tobacco: Never Smokeless Tobacco: Never Alcohol Use Standard Drinks/Week Comments No 0 (1 standard drink = 0.6 oz pur e alcohol) PHQ-2 Answer Date Recorded PHQ2 TOTAL SCORE 2 01/21/2021 Comments No Sex and Gender Information Value Date Recorded Sex Assigned at Not on file Legal Sex Female 4:21 AM BARISTA Gender Identity Not on file Sexual Orientation Not on file Last Filed Vital Signs Vital Sign Reading Time Taken Comments Blood Pressure 116/84 01/21/2021 10:20 AM CDT Pulse 64 01/21/2021 10:20 AM CDT Temperature 37.1 C (98.7 F) 01/21/2021 10:20 AM CDT Respiratory Rate 18 10/24/2020 11:07 PM CDT Oxygen Saturation 100% 10/25/2020 4:33 AM CDT Inhaled Oxygen Concentration - - Weight 68.9 kg (152 lb) 01/21/2021 10:20 AM CDT Height 167.6 cm (5' 6) 01/21/2021 10:20 AM CDT Body Mass Index 24.53 01/21/2021 10:20 AM CDT Plan of Treatment Health Maintenance Due Date Last Done Comments HEPATITIS C SCREENING 04/22/2014 DTAP/TDAP/TD VACCINES (8 - Td or Tdap) 04/30/2019 04/30/2009, 01/11/2008, 01/17/2002, Additional history exists HPV VACCINE (1 - 3-dose SCDM series) 2023 COVID-19 VACCINE ( season) 2024 DEPRESSION SCREENING 06/06/2024 INFLUENZA VACCINE (#1) 2025 ZOSTER VACCINE (1 of 2) 2046 HEPATITIS B VACCINE Completed 08/19/1997, 1996, 1996 HIB VACCINE Completed 08/19/1997, 01/05, 1996 MENINGOCOCCAL GROUPS A/C/Y/W VACCINE Aged Out 01/11/2008 No longer eligible based on patient's age to complete this topic HIV SCREENING Completed 10/25/2020 MENINGOCOCCAL (Group B) VACCINE SHARED DECISION-MAKING Aged Out No longer eligible based on patient's age to complete this topic PNEUMOCOCCAL VACCINE Aged Out No long er eligible based on patient's age to complete this topic Procedures Procedure Name Priority Date/Time Associated Diagnosis Comments HIV-1 HIV-2 ANTIBODY + HIV P24 AG PANEL STAT 10/25/2020 12:05 AM CDT from Last 3 Months or Most Recently Relevant to Health Maintenance Results * HIV-1 HIV-2 ANTIBODY + HIV P24 AG PANEL (10/25/2020 12:05 AM CDT) HIV1/2 Ab + P24 Ag Non Reactive Non Reactive 10/25/2020 12:55 AM CDT [facility] Blood BLOOD SPECIMEN / Unknown Venipuncture / Unknown 10/25/2020 12:05 AM CDT 10/25/2020 12:11 AM CDT Narrative [facility] - 10/25/2020 12:55 AM CDT No Laboratory evidence of HIV infection. Fer Naik DO LAB - CHEMISTRY ORDERABLES Fin al Result [facility] [address] [place] [address] from Last 3 Months or Most Recently Relevant to Health Maintenance Insurance [facility] JANET PALOMINO [id number] TPL THIRD CONSTITUTION PARTY LIABILITY Green Party Liability * Guarantor: CHARLOTTE QUINTERO Account Type Relation to Patient Date of Phone Billing Address Personal/Family 1995 [address] QUINTERO [address] [place] [address] Advance Directives Documents on File Type Date Recorded Patient Pewter Caster Expl anation Adv Directive/Living Will/POA 02/13/2009 Adv Directive/Living Will/POA 02/13/2009 * FULL RESUSCITATION (Latest Code Status on File) Date Activated Date Inactivated Comments 01/10/2012 10:01 PM 01/12/2012 7:30 PM Care Teams Milieu Manager Relationship Specialty Start Date End Date [facility] [address] [place] [address] PCP - General Drug Enforcement Agent 01/21/21 Barb Orellana DPM [address] [place] [address] Podiatry 11/05/11
--- OUTSIDE RECORDS SUMMARY | 2024-12-20 19:58 | XMS_ITS | Encounter Summary ---
Author Organization [facility] Address [address] [place] [address] Care Team Providers Care Academic Records Specialist Name Role Phone Unavailable Primary Care Provider Unavailabl e Prior Encounters Date Type Department Care Team Description 06/15/2022 11:30 AM INTERMEDIATE MANAGER Office Visit [facility] [address] [place] [address] Silvia Harvey DDS 06/14/2022 8:30 AM INTERMEDIATE MANAGER Office Visit [facility] [address] [place] [address] Silvia Harvey DDS 05/17/2022 Travel 05/17/2022 9:30 AM INTERMEDIATE MANAGER Office Visit [facility] [address] [place] [address] Silvia Harvey DDS 11/23/2021 Travel 11/23/2021 9:00 AM CDT Office Visit [facility] [address] [place] [address] Rishi Greene DDS 11/09/2021 9:00 AM CDT Office Visit [facility] [address] [place] [address] Rishi Greene DDS 11/09/2021 9:00 AM CDT Office Visit [facility] [address] [place] [address] Ana Cristina Barton RDH 05/04/2021 Travel 05/04/2021 8:00 AM INTERMEDIATE MANAGER Office Visit [facility] [address] [place] [address] Diane Juarez, DMD 05/04/2021 8:00 AM INTERMEDIATE MANAGER Office Visit [facility] [address] [place] [address] Ana Cristina Barton, [facility] 06/25/2019 Converted 13x Documents [facility] [address] [place] [address] <No scans attached> 06/25/2019 Converted CPS Chart Documents [facility] [address] [place] [address] <No scans attached> Last Filed Vital Signs Vital Sign Reading Time Taken Comments Blood Pressure 106/71 06/15/2022 11:21 AM INTERMEDIATE MANAGER Pulse 80 06/15/2022 11:21 AM INTERMEDIATE MANAGER Temperature 35.8 C (96.4 F) 05/04/2021 8:13 AM INTERMEDIATE MANAGER Respiratory Rate - - Oxygen Saturation - - Inhaled Oxygen Concentration - - Weight - - Height - - Body Mass Index - - Plan of Treatment Not on file Procedures Procedure Name Priority Date/Time Associated Diagnosis Comments RE-EVALUATION POST-OPERATIVE OFFICE VISIT Routine 06/15/2022 11:30 AM INTERMEDIATE MANAGER 2 DANIEL RESIN-BASED COMPOSITE - THREE SURFACES, POSTERIOR Routine 06/14/2022 8:30 AM INTERMEDIATE MANAGER 3 LO RESIN-BASED COMPOSITE - TWO SURFACES, POSTERIOR Routine 06/14/2022 8:30 AM INTERMEDIATE MANAGER 14 LO RESIN-BASED COMPOSITE - TWO SURFACES, POSTERIOR Routine 06/14/2022 8:30 AM INTERMEDIATE MANAGER PERIODIC ORAL EVALUATION - ESTABLISHED PATIENT Routine 05/17/2022 9:30 AM INTERMEDIATE MANAGER PROPHYLAXIS - ADULT Routine 05/17/2022 9 :30 AM INTERMEDIATE MANAGER BITEWINGS - FOUR RADIOGRAPHIC IMAGES Routine 05/17/2022 9:30 AM INTERMEDIATE MANAGER 18 CARMEN RESIN-BASED COMPOSITE - TWO SURFACES, POSTERIOR Routine 11/23/2021 9:00 AM CDT 14 LO RESIN-BASED COMPOSITE - TWO SURFACES, POSTERIOR Routine 11/23/2021 9:00 AM CDT BITEWINGS - FOUR RADIOGRAPHIC IMAGES Routine 11/09/2021 9:00 AM CDT PERIODIC ORAL EVALUATION - ESTABLISHED PATIENT Routine 11/09/2021 9:00 AM CDT TOPICAL APPLICATION OF FLUORIDE VARNISH Routine 11/09/2021 9:00 AM CDT ORAL HYGIENE INSTRUCTIONS Routine 2021 9:00 AM CDT PROPHYLAXIS - ADULT Routine 11/09/2021 9 :00 AM CDT 2 LO COMPOSITE FILLING Routine 12:00 AM CDT 15 O AMALGAM FILLING Routine 11/09/2021 12:00 AM CDT 14 O AMALGAM FILLING Routine 11/09/2021 12:00 AM CDT 19 O AMALGAM FILLING Routine 11/09/2021 12:00 AM CDT ORAL HYGIENE INSTRUCTIONS Routine 2020 8:00 AM INTERMEDIATE MANAGER TOPICAL APPLICATION OF FLUORIDE VARNISH Routine 05/04/2021 8:00 AM INTERMEDIATE MANAGER PROPHYLAXIS - ADULT Routine 05/04/2021 8 :00 AM INTERMEDIATE MANAGER PERIODIC ORAL EVALUATION - ESTABLISHED PATIENT Routine 05/04/2021 8:00 AM INTERMEDIATE MANAGER ORAL HYGIENE INSTRUCTIONS Routine 2020 2:00 AM CDT TOPICAL APPLICATION OF FLUORIDE VARNISH Routine 10/29/2020 2:00 AM CDT PROPHYLAXIS - ADULT Routine 10/29/2020 2 :00 AM CDT COMPREHENSIVE ORAL EVALUATION - NEW OR ESTABLISHED PATIENT Routine 10/29/2020 2:00 AM CDT INTRAORAL PHOTO Routine 10/29/2020 2:00 AM CDT INTRAORAL PHOTO Routine 10/29/2020 2:00 AM CDT INTRAORAL PHOTO Routine 10/29/2020 2:00 AM CDT INTRAORAL PHOTO Routine 10/29/2020 2:00 AM CDT PANORAMIC RADIOGRAPHIC IMAGE Routine 10/29/2020 2:00 AM CDT INTRAORAL - COMPREHENSIVE SERIES OF RADIOGRAPHIC IMAGES Routine 10/29/2020 2:00 AM CDT Visit Diagnoses Not on file Insurance [facility] PPO
--- OUTSIDE RECORDS SUMMARY | 2024-12-20 19:58 | XMS_ITS | Referral Summary ---
Author Organization [facility] [address] [facility] Address [address] [place] [address] Care Team Providers Care Director Of Personnel Name Role Phone Leo Palomares MD Unavailable [phone] Janna Guthrie Primary Care Provider [phone] Allergies No known active allergies Medications gabapentin [...] needed. Assessment & Plan (08/03/2021 12:59 PM DIRECTOR OF EARLY CHILDHOOD EDUCATION): At this time there is not evidence [...] needed. Assessment & Plan (05/04/2021 2:53 PM DIRECTOR OF EARLY CHILDHOOD EDUCATION): At this time there is not evidence [...] an extensive workup by her PCP and [facility] rheumatology which did not reveal evidence to [...] on file Legal Sex Female 10:52 AM DIRECTOR OF EARLY CHILDHOOD EDUCATION Gender Identity Not on file Sexual Orientation Not on file Last Filed Vital Signs Vital Sign Reading Time Taken Comments Blood Pressure 110/82 09/28/2021 11:27 AM CDT Pulse 87 09/28/2021 11:27 AM CDT Temperature 36.6 C (97.8 F) 08/03/2021 11:10 AM DIRECTOR OF EARLY CHILDHOOD EDUCATION Respiratory Rate - - Oxygen Saturation 97% 09/28/2021 11:27 AM CDT Inhaled Oxygen Concentration - - Weight 71.9 kg (158 lb 9.6 oz) 09/28/2021 11:27 AM CDT Height 167.6 cm (5' 6) 03/05/2021 10:12 AM CDT Body Mass Index 25.6 03/05/2021 10:12 AM CDT Plan of Treatment Not on file Insurance [facility] CHO[facility] PLUS [facility] H[facility]/PPO Address: [address] [address] [place] [address] ANTH ACCESS CHOICE Care Teams Director Of Personnel Relationship Specialty Start Date End Date Janna Guthrie PA [address] [place] [address] PCP - General Physician Fruit Raiser 01/21/21 Leo Palomares MD [address] [place] [address] Consulting Physician Rheumatology 01/21/21
--- OUTSIDE RECORDS SUMMARY | 2024-12-20 19:58 | XMS_ITS | Clinical Summary ---
Author Organization [facility] Address [address] [place] [address] Care Team Providers Care Taxi Cab Driver Name Role Phone Unavailable Primary Care Provider Unavailabl e Allergies No known active allergies Medications amLODIPine (NORVASC) 2.5 mg tablet Take 2.5 mg by mouth 1 (one) time each day. 01/05/2021 Active cyclobenzaprine (FLEXERIL) 10 mg tablet Take 10 mg by mouth 3 (three) times a day if needed. 10/25/2020 Active ferrous sulfate 325 mg (65 mg iron) tablet Take 325 mg by mouth 1 (one) time each day. 10/22/2020 Active norethindrone-e .estradioL-iron (JUNEL FE 06/25) 1 mg-20 mcg (21)/75 mg (7) tablet Take 1 tablet by mouth 1 (one) time each day. 12/22/2020 Active pregabalin (LYRICA) 75 mg capsule Take 75 mg by mouth twice a day. 03/17/2021 Active gabapentin (NEURONTIN) 300 mg capsule TAKE 1 CAPSULE BY MOUTH NIGHTLY FOR 14 DAYS THEN 2 NIGHTLY FOR 14 DAYS THEN 3 NIGHTLY 09/05/2021 Active gabapentin (NEURONTIN) 600 mg tablet Take 600 mg by mouth 1 (one) time each day. 09/28/2021 Active Active Problems Problem Noted Date Diagnosed Date Fibromyalgia 03/05/2021 Overview (05/04/2021): US left hand/wrist (03/10/21): Grade 1 effusion in the 5th MCP and 3rd PIP joint on examination. Marked synovial thickening in the 2nd PIP joint. Moderate synovial thickening in the 3rd PIP joint. Hyperextension of the 5th MCP joint is appreciated on US exam. Last Assessment & Plan: 25yoF presents for a constellation of symptoms [...] in 6-8 weeks or sooner as needed. Fibromyalgia 03/05/2021 Overview (11/09/2021): US left hand/wrist (03/10/21): Grade 1 effusion in the 5th MCP and 3rd PIP joint on examination. Marked synovial thickening in the 2nd PIP joint. Moderate synovial thickening in the 3rd PIP joint. Hyperextension of the 5th MCP joint is appreciated on US exam. Last Assessment & Plan: At this time there is not evidence to suggest underlying CTD or inflammatory arthritis, favor fibromyalgia and hypermobility as the source of her pain complaints. Notes improvement with gabapentin 600 mg qHS and would like to continue with this dose. She will continue with the HEP and going to the gym. Plan for follow up in 4 months or sooner as needed. Depression 04/27/2013 Fall 04/30/2009 Immunizations Immunization Administration Dates Next Due DTaP 01/11/2008, 2,08/19/1997,01/24/1997,0 1996,1996 HIB (PRP-T) 01/11/2008 Hep B, adolescent or pediatric 08/19/1997,1996,1996 Hib (PRP-D) 08/19/1997,01/24/1997,1996 IPV 01/17/2002,01/24/1997,1996 ,1996 MMR 01/17/2002,08/19/1997 Tdap 04/30/2009 Social History Tobacco Use Types Packs/Day Years Used Date Smoking Tobacco: Never Smokeless Tobacco: Never Tobacco Cessation:Counseling Given: Not Answered Alcohol Use Standard Drinks/Week Comments Never 0 (1 standard drink = 0.6 oz pur e alcohol) Comments Unknown Sex and Gender Information Value Date Recorded Sex Assigned at Not on file Legal Sex Female 8:38 PM PDT Gender Identity Not on file Sexual Orientation Not on file Last Filed Vital Signs Vital Sign Reading Time Taken Comments Blood Pressure 106/71 06/15/2022 11:21 AM AGILE QA TESTER Pulse 80 06/15/2022 11:21 AM AGILE QA TESTER Temperature 35.8 C (96.4 F) 05/04/2021 8:13 AM AGILE QA TESTER Respiratory Rate - - Oxygen Saturation - - Inhaled Oxygen Concentration - - Weight - - Height - - Body Mass Index - - Plan of Treatment Health Maintenance Due Date Last Done Comments Dental Oral Exam 11/16/2022 05/17/2022, 11/2021, 05/04/2021, Additional history exists Dental Prophylaxis 11/16/2022 05/17/2022, 0 11/09/2021, 05/04/2021, Additional history exists Dental X-Ray: Bitewings 11/16/2022 05/17/2022 Dental X-Ray: Full Mouth 11/08/2023 11/06/2020, 05/2 11/2020 Dental X-Ray: Panoramic 11/09/2023 11/07/2020, 10/29 Procedures Procedure Name Priority Date/Time Associated Diagnosis Comments PROPHYLAXIS - ADULT Routine 05/17/2022 9 :30 AM AGILE QA TESTER PERIODIC ORAL EVALUATION - ESTABLISHED PATIENT Routine 05/17/2022 9:30 AM AGILE QA TESTER PANORAMIC RADIOGRAPHIC IMAGE Routine 10/29/2020 2:00 AM CDT INTRAORAL - COMPREHENSIVE SERIES OF RADIOGRAPHIC IMAGES Routine 10/29/2020 2:00 AM CDT from Last 3 Months or Most Recently Relevant to Health Maintenance Insurance [facility] [place] [facility] [place] PPO
--- NOTE | 2024-12-20 20:00 | ECG_ITS ---
Test Date: 2024-12-20 20:30:12 Measurements Intervals Delta Rate: 79 P: 72 OR: 192 QRS: 46 QRSD: 76 T: 33 QT: 351 QTc: 403 Interpretive Statements SINUS RHYTHM NORMAL ELECTROCARDIOGRAM No previous ECG available for comparison Electronically Signed On 12-21-2024 07:42:46 CDT by Jairo Costello M.D.
[2024-12-20 20:16] VITALS: BP 120/81; PULSE 91; RESP 14; TEMP 36.7; O2SAT 100
[2024-12-20 20:30] LABS: Hematocrit 36.7 % (37.0-47.0); Hemoglobin 11.6 g/dL (12.0-15.0); Immature Granulocyte Percent A 0.2 % (0-0.5); Lymphocytes Absolute Auto 3.33 K/mm3 (0.9-3.2); Mean Corpuscular HGB Conc 31.6 g/dl (32-36); Mean Corpuscular Hemoglobin 25.4 pg (26-34); Mean Corpuscular Volume 80.3 fl (80-100); Nucleated Red Blood Cells Absolute Auto 0.000 K/mm3 (0.0-0.012); Nucleated Red Blood Cells Perc 0.0 % (0.0-0.2); Platelet Count Result 289 k/mm3 (150-375); Red Blood Count 4.57 M/mm3 (4.2-5.4); White Blood Count 9.3 K/mm3 (4.5-10.0)
[2024-12-20 20:42] LABS: Alanine Aminotransferase 12 U/L (6-35); Albumin Level 4.4 g/dL (3.5-5.1); Alkaline Phosphatase 49 U/L (38-126); Anion Gap 10 mmol/L (4-12); Aspartate Amino Transferase 24 U/L (14-36); Bilirubin,Total 0.5 mg/dL (0.2-1.3); Blood Urea Nitrogen 16 mg/dL (7-17); Calcium 9.4 mg/dL (8.4-10.2); Carbon Dioxide 23 mmol/L (22-30); Chloride 107 mmol/L (98-107); Estimated CRCL calculation 84 ml/min; Estimated Glomerular Filt Rate > 60; Glucose 101 mg/dL (65-110); INR 1.0; Lipase 71 U/L (23-300); Partial Thromboplastin Time 28.1 Seconds (22.3-36.8); Potassium 3.6 mmol/L (3.4-5.0); Prothrombin Time 13.3 Seconds (11.1-14.7); Sodium 140 mmol/L (137-145); Total Protein 8.1 g/dL (6.3-8.2)
[2024-12-20 20:53] LABS: Troponin I < 0.012 ng/mL (0.000-0.034)
--- NOTE | 2024-12-21 00:13 | PC.NURSE ---
No answer when called for room.
--- NOTE | 2024-12-21 00:22 | PC.NURSE ---
No answer when called for room. Pt not visualized in the waiting room at this time. Assumed pt left without alerting triage staff.
--- OUTSIDE RECORDS SUMMARY | 2024-12-21 00:40 | XMS_ITS | Clinical Summary ---
Author Organization [facility] Address [address] [place] [address] Care Team Providers Care Planimeter Operator Name Role Phone Barb Orellana M Unavailable [phone] [facility] Care Provider Source Comments [facility],non-owned Affiliates and Associated Physician Practices is amultiple site organization consisting of ambulatory clinics and hospital sitesin [place], [place], [place]. This disclosure is being madepursuant to the Care Everywhere program and may not contain all information available regarding this patient. Last updated 18.[facility] Allergies No known active allergies Medications * [...] on file Legal Sex Female 4:21 AM RELIEF MAP MODELER Gender Identity Not on file Sexual Orientation [...] LAB - CHEMISTRY ORDERABLES Fin al Result [facility] [address] [place] [address] from Last 3 Months or Most Recently Relevant to Health Maintenance Insurance [facility] JANET PALOMINO [id number] TPL THIRD CONSTITUTION PARTY LIABILITY Republican Liability * Guarantor: CHARLOTTE QUINTERO Account Type Relation to Patient Date of Phone Billing Address Personal/Family 1995 [address] [place] [address] Advance Directives Documents on File Type Date Recorded Patient Pediatric Anesthesiologist Expl anation Adv Directive/Living Will/POA 02/13/2009 Adv Directive/Living Will/POA 02/13/2009 * FULL RESUSCITATION (Latest Code Status on File) Date Activated Date Inactivated Comments 01/10/2012 10:01 PM 01/12/2012 7:30 PM Care Teams Planimeter Operator Relationship Specialty Start Date End Date [facility] [address] [place] [address] PCP - General Sheriffs Detective 01/21/21 Barb Orellana DPM [address] [place] [address] Podiatry 11/05/11
--- OUTSIDE RECORDS SUMMARY | 2024-12-21 00:40 | XMS_ITS | Clinical Summary ---
Author Organization [facility] [address] [facility] Address [address] [place] [address] Care Team Providers Care Plastic Frame Inserter Name Role Phone Leo Palomares MD Unavailable Janna Guthrie Primary Care Provider [phone] Allergies No known active allergies Medications gabapentin [...] needed. Assessment & Plan (08/03/2021 12:59 PM FLOOR SCRAPER): At this time there is not evidence [...] needed. Assessment & Plan (05/04/2021 2:53 PM FLOOR SCRAPER): At this time there is not evidence [...] an extensive workup by her PCP and [facility] rheumatology which did not reveal evidence to [...] on file Legal Sex Female 10:52 AM FLOOR SCRAPER Gender Identity Not on file Sexual Orientation Not on file Obstetrics History Last Filed Vital Signs Vital Sign Reading Time Taken Comments Blood Pressure 110/82 09/28/2021 11:27 AM CDT Pulse 87 09/28/2021 11:27 AM CDT Temperature 36.6 C (97.8 F) 08/03/2021 11:10 AM FLOOR SCRAPER Respiratory Rate - - Oxygen Saturation 97% 09/28/2021 11:27 AM CDT Inhaled Oxygen Concentration - - Weight 71.9 kg (158 lb 9.6 oz) 09/28/2021 11:27 AM CDT Height 167.6 cm (5' 6) 03/05/2021 10:12 AM CDT Body Mass Index 25.6 03/05/2021 10:12 AM CDT Plan of Treatment Not on file Insurance [facility] CHOICE PLUS [facility] ACCESS CHOICE Care Teams Plastic Frame Inserter Relationship Specialty Start Date End Date Janna Guthrie PA [address] [place] [address] PCP - General Physician Diesel Truck Technician 01/21/21 Leo Palomares MD [address] [place] [address] Consulting Physician Rheumatology 01/21/21
--- OUTSIDE RECORDS SUMMARY | 2024-12-21 00:40 | XMS_ITS | Referral Summary ---
Author Organization [facility] [address] [facility] Address [address] [place] [id number] Care Team Providers Care Product Info Specialist Name Role Phone Leo Palomares MD Unavailable [phone] Janna Guthrie Primary Care Provider [phone] Allergies No known active allergies Medications gabapentin [...] needed. Assessment & Plan (08/03/2021 12:59 PM DRAFTING CLERK): At this time there is not evidence [...] needed. Assessment & Plan (05/04/2021 2:53 PM DRAFTING CLERK): At this time there is not evidence [...] an extensive workup by her PCP and [facility] rheumatology which did not reveal evidence [...] on file Legal Sex Female 10:52 AM DRAFTING CLERK Gender Identity Not on file Sexual Orientation Not on file Last Filed Vital Signs Vital Sign Reading Time Taken Comments Blood Pressure 110/82 09/28/2021 11:27 AM CDT Pulse 87 09/28/2021 11:27 AM CDT Temperature 36.6 C (97.8 F) 08/03/2021 11:10 AM DRAFTING CLERK Respiratory Rate - - Oxygen Saturation 97% 09/28/2021 11:27 AM CDT Inhaled Oxygen Concentration - - Weight 71.9 kg (158 lb 9.6 oz) 09/28/2021 11:27 AM CDT Height 167.6 cm (5' 6) 03/05/2021 10:12 AM CDT Body Mass Index 25.6 03/05/2021 10:12 AM CDT Plan of Treatment Not on file Insurance [facility] CHOICE PLUS ANTH ACCESS CHOICE Care Teams Product Info Specialist Relationship Specialty Start Date End Date Janna Guthrie PA [address] [place] [address] PCP - General Physician Printed Circuit Board Designer 01/21/21 Leo Palomares MD [address] [place] [address] Consulting Physician Rheumatology 01/21/21
--- OUTSIDE RECORDS SUMMARY | 2024-12-21 00:40 | XMS_ITS | Encounter Summary ---
Author Organization [facility] Health Address [address] [place] [address] Care Team Providers Care Purchasing And Fiscal Clerk Name Role Phone Unavailable Primary Care Provider Unavailabl e Prior Encounters Date Type Department Care Team Description 06/15/2022 11:30 AM WAXED BAG MACHINE OPERATOR Office Visit [facility] [address] [place] [address] Silvia Harvey DDS 06/14/2022 8:30 AM WAXED BAG MACHINE OPERATOR Office Visit [facility] [address] [place] [address] Silvia Harvey DDS 05/17/2022 Travel 05/17/2022 9:30 AM WAXED BAG MACHINE OPERATOR Office Visit [facility] [address] [place] [address] Silvia Harvey DDS 11/23/2021 Travel 11/23/2021 9:00 AM CDT Office Visit [facility] [address] [place] [address] Rishi Greene DDS 11/09/2021 9:00 AM CDT Office Visit [facility] [address] [place] [address] Rishi Greene DDS 11/09/2021 9:00 AM CDT Office Visit [facility] [address] [place] [address] Ana Cristina Barton RDH 05/04/2021 Travel 05/04/2021 8:00 AM WAXED BAG MACHINE OPERATOR Office Visit [facility] [address] [place] [address] Diane Juarez, DMD 05/04/2021 8:00 AM WAXED BAG MACHINE OPERATOR Office Visit [facility] [address] [place] [address] Ana Cristina Barton, 06/25/2019 Converted 13x Documents [facility] [address] [place] [address] <No scans attached> 06/25/2019 Converted CPS Chart Documents [facility] [address] [place] [address] <No scans attached> Last Filed Vital Signs Vital Sign Reading Time Taken Comments Blood Pressure 106/71 06/15/2022 11:21 AM WAXED BAG MACHINE OPERATOR Pulse 80 06/15/2022 11:21 AM WAXED BAG MACHINE OPERATOR Temperature 35.8 C (96.4 F) 05/04/2021 8:13 AM WAXED BAG MACHINE OPERATOR Respiratory Rate - - Oxygen Saturation - - Inhaled Oxygen Concentration - - Weight - - Height - - Body Mass Index - - Plan of Treatment Not on file Procedures Procedure Name Priority Date/Time Associated Diagnosis Comments RE-EVALUATION POST-OPERATIVE OFFICE VISIT Routine 06/15/2022 11:30 AM WAXED BAG MACHINE OPERATOR 2 DANIEL RESIN-BASED COMPOSITE - THREE SURFACES, POSTERIOR Routine 06/14/2022 8:30 AM WAXED BAG MACHINE OPERATOR 3 LO RESIN-BASED COMPOSITE - TWO SURFACES, POSTERIOR Routine 06/14/2022 8:30 AM WAXED BAG MACHINE OPERATOR 14 LO RESIN-BASED COMPOSITE - TWO SURFACES, POSTERIOR Routine 06/14/2022 8:30 AM WAXED BAG MACHINE OPERATOR PERIODIC ORAL EVALUATION - ESTABLISHED PATIENT Routine 05/17/2022 9:30 AM WAXED BAG MACHINE OPERATOR PROPHYLAXIS - ADULT Routine 05/17/2022 9 :30 AM WAXED BAG MACHINE OPERATOR BITEWINGS - FOUR RADIOGRAPHIC IMAGES Routine 05/17/2022 9:30 AM WAXED BAG MACHINE OPERATOR 18 CARMEN RESIN-BASED COMPOSITE - TWO SURFACES, [...] ORAL HYGIENE INSTRUCTIONS Routine 2020 8:00 AM WAXED BAG MACHINE OPERATOR TOPICAL APPLICATION OF FLUORIDE VARNISH Routine 05/04/2021 8:00 AM WAXED BAG MACHINE OPERATOR PROPHYLAXIS - ADULT Routine 05/04/2021 8 :00 AM WAXED BAG MACHINE OPERATOR PERIODIC ORAL EVALUATION - ESTABLISHED PATIENT Routine 05/04/2021 8:00 AM WAXED BAG MACHINE OPERATOR ORAL HYGIENE INSTRUCTIONS Routine 2020 2:00 AM [...] CDT Visit Diagnoses Not on file Insurance [facility] PPO
--- OUTSIDE RECORDS SUMMARY | 2024-12-21 00:40 | XMS_ITS | Clinical Summary ---
Author Organization [facility] Health Address [address] [place] [address] Care Team Providers Care Motion Picture Critic Name Role Phone Unavailable Primary Care Provider [...] Comments Blood Pressure 106/71 06/15/2022 11:21 AM JACQUARD LOOM CARPET WEAVER Pulse 80 06/15/2022 11:21 AM JACQUARD LOOM CARPET WEAVER Temperature 35.8 C (96.4 F) 05/04/2021 8:13 AM JACQUARD LOOM CARPET WEAVER Respiratory Rate - - Oxygen Saturation - [...] - ADULT Routine 05/17/2022 9 :30 AM JACQUARD LOOM CARPET WEAVER PERIODIC ORAL EVALUATION - ESTABLISHED PATIENT Routine 05/17/2022 9:30 AM JACQUARD LOOM CARPET WEAVER PANORAMIC RADIOGRAPHIC IMAGE Routine 10/29/2020 2:00 AM CDT INTRAORAL - COMPREHENSIVE SERIES OF RADIOGRAPHIC IMAGES Routine 10/29/2020 2:00 AM CDT from Last 3 Months or Most Recently Relevant to Health Maintenance Insurance [employer] [facility] [facility] [place] [employer] [place] PPO
== END 2024-12-21 00:13 | disposition left against medical advice (07) ==
PROVIDERS: Emergency Provider Student in an Organized Health Care Education/Training Program
DX: R07.9 Chest pain, unspecified (principal)
CPT/HCPCS: 36415; 71046; 80053; 83690; 84484; 85025; 85610; 85730; 93005; 99199

== ENCOUNTER 2025-04-24 22:12 | Emergency (ER) | payer OTHER, SELFPAY ==
--- NOTE | ~2025-04-24 | US_ITS ---
EXAM/PROCEDURE: US OB <= 14 weeks fetus HISTORY: rule out ectopic COMPARISON: None available. TECHNIQUE: Directed evaluation for evaluating viability and dates. FINDINGS: A single viable intrauterine gestation is present with heart rate of 168 bpm EGA by ultrasound 8 weeks 5 days EDC by ultrasound November 30 Hypoechoic area adjacent to the gestational sac measures 2.2 x 1.2 x 0.7 cm. Left ovary appears normal in size, vascular flow and echotexture. The right ovary is not visualized. No free fluid seen. IMPRESSION: 1. Single viable intrauterine gestation at 8 weeks 5 days by ultrasound with heart rate of 168 bpm. 2. Probable 2.2 subchorionic hemorrhage. 3. The left ovary appears normal. The right ovary is not visualized. Reviewed, dictated and finalized at location A. ING MACHINE TENDER DECORATIVE IMPRESSION: 1. Single viable intrauterine gestation at 8 weeks 5 days by ultrasound with fe ivan heart rate of 168 bpm. 2. Probable 2.2 subchorionic hemorrhage. 3. The left ovary appears normal. The right ovary is not visualized.
[2025-04-24 22:15] VITALS: BP 130/79; PULSE 88; RESP 16; TEMP 36.6; O2SAT 100
[2025-04-24 22:43] VITALS: BP 117/81; PULSE 90; RESP 23; O2SAT 96
--- NOTE | 2025-04-24 23:45 | ED_ITS ---
HPI - Abdominal Pain General Chief Complaint: Abdominal Pain Stated Complaint: abdominal cramping, Time Seen by Provider: 04/24/25 22:25 History of Present Illness HPI narrative: Patient is a 29-year-old female who reports to the ER with sharp lower abdominal pain. She reports her pain started on Tuesday in her left lower quadrant. Patient reports she is and her last menstrual period was at the end of February. She has not had her 1st OB appointment yet. Patient endorses abnormal vaginal discharge and reports ?it smells like yeast. She denies any urinary symptoms, recent fevers, or vaginal bleeding. Patient denies any medical history relevant to this ER visit. She reports she has had 1 previous with a live vaginal delivery. Related Data Allergies Allergy/AdvReac Type Severity Reaction Status Date / Time No Known Allergies Allergy Verified 12/20/24 20:19 Review of Systems 2 Review of Systems: All systems reviewed & are unremarkable except as noted in HPI and below PMFSH Past Medical History Medical History History of PID History of gonorrhea History of chlamydia infection Surgical History Surgical History No history of previous surgery Family History Family History Other Hypertension Social History Social History Smoking status: Never smoker Alcohol intake: never Substance use: never Substance use type: does not use Lack of Transportation: No Lack of Food: Never True Current Housing: I Have Housing Concerned About Future Housing: No Difficulty Paying Gas/Electric Bills: No Difficulty Paying for Meds: No Currently Unemployed: No Difficulty w/ Childcare or Family Care: No Exam 2 Narrative: GENERAL: Well appearing, well-nourished, non-toxic, in no acute distress. HEAD: Normocephalic, atraumatic. NECK: Supple. No adenopathy, no masses. RESPIRATORY: Airway patent, respirations nonlabored. Clear to auscultation bilaterally, no rales, rhonchi, wheezing. CARDIOVASCULAR: Regular rate and rhythm without murmurs, rubs, or gallops. Peripheral pulses 2+ and equal bilaterally. ABDOMINAL: Soft, lower quadrant tenderness, nondistended, no hepatosplenomegaly. Normoactive BS. MUSCULOSKELETAL: Moves all extremities. Strength/ROM intact without gross deformities. SKIN: Warm, dry, normal color. No rashes. NEURO: A&O X3. Speech clear. Cranial nerves II-XII intact. No ataxic movements. PSYCHIATRIC: Appropriate mood and affect. Normal interaction. Course Vital Signs Vital signs: Vital Signs Temperature 36.6 C 04/24/25 22:15 Pulse Rate 88 04/24/25 22:15 Respiratory Rate 16 04/24/25 22:15 Blood Pressure 130/79 04/24/25 22:15 Pulse Oximetry 100 04/24/25 22:15 Oxygen Delivery Room Air 04/24/25 22:15 Temperature 36.6 C 04/24/25 22:15 Pulse Rate 90 04/24/25 22:43 Respiratory Rate 23 H 04/24/25 22:43 Blood Pressure 117/81 04/24/25 22:43 Pulse Oximetry 96 04/24/25 22:43 Oxygen Delivery Room Air 04/24/25 22:15 MDM - Abdominal Pain MDM Narrative Medical decision making narrative: Patient is a 29-year-old female who reports to the ER with sharp lower abdominal pain. She reports her pain started on Tuesday in her left lower quadrant. Patient reports she is and her last menstrual period was at the end of February. She has not had her 1st OB appointment yet. Patient endorses abnormal vaginal discharge and reports ?it smells like yeast. She denies any urinary symptoms, recent fevers, or vaginal bleeding. Patient denies any medical history relevant to this ER visit. She reports she has had 1 previous with a live vaginal delivery. Labs Ordered: CBC, CMP, beta hCG, UA, GC chlamydia, Trichomonas Imaging Ordered: Ultrasound Ob Medications Ordered: Tylenol 1 g p.o., Zofran 4 mg IV, 1 L normal saline IV bolus Results: Patient's ultrasound indicates a single intrauterine gestation identified with a yolk sac and pole noted. Positive heart tones averaging 168 beats per minute. The crown-rump length is consistent with 8 weeks and 5 days. Estimated date of delivery is 11/30/2025. Crescentic hypoechoic area adjacent to the gestational sac measuring 1.2 x 0.7 x 2.2 cm, consistent with subchorionic hemorrhage. Diagnosis: Intrauterine gestational sac, subchorionic hemorrhage, abdominal cramping Consults: OBGYN (outpatient), already established with Dr. Bingham Patient Education/Shared MDM: Results of lab work and imaging shared with patient. She endorses improvement of symptoms following medication administration. Patient strongly advised to maintain hydration status upon discharge and follow-up with her OBGYN as soon as possible. She will be discharged home with a prescription for Zofran. Patient cage take Tylenol as needed for pain control. Strict return precautions provided. Patient verbalized understanding and is in agreement with plan. Vital signs stable at time of discharge. All questions answered. Differential Diagnosis Differential diagnosis: Likely abdominal pain and other (Threatened miscarriage, subchorionic hemorrhage, urinary tract infection, ectopic ) Lab Data Attestation: I reviewed the patient's lab results. 04/25/25 00:17 04/25/25 00:17 Labs: Lab Results 04/25/25 04/25/25 Range/Units 00:17 00:54 WBC 9.5 (4.5-10.0) K/mm3 RBC 4.03 L (4.2-5.4) M/mm3 Hgb 10.6 L (12.0-15.0) g/dL Hct 32.8 L (37.0-47.0) % MCV 81.4 (80-100) fl MCH 26.3 (26-34) pg MCHC 32.3 (32-36) g/dl RDW 16.2 H (11.5-14.5) % Plt Count 287 (150-375) k/mm3 MPV 10.3 (7.4-10.4) fl Immature Gran % (Auto) 0.3 (0-0.5) % Neut % (Auto) 68.1 (45.5-73.1) % Lymph % (Auto) 22.8 (18.3-44.2) % [place] % (Auto) 6.5 (2.6-8.5) % Eos % (Auto) 1.8 (0-4.4) % Baso % (Auto) 0.5 (0.2-1.2) % Lymph # (Auto) 2.17 (0.9-3.2) K/mm3 [place] # (Auto) 0.6 (0.1-0.6) K/mm3 Eos # (Auto) 0.2 (0-0.3) K/mm3 Baso # (Auto) 0.1 (0.0-0.1) K/mm3 Abs Immat Gran (auto) 0.03 (0.00-0.031) K/mm3 Absolute Neuts (auto) 6.5 (1.3-6.7) K/mm3 Absolute Nucleated RBC 0.000 (0.0-0.012) K/mm3 Nucleated RBC % 0.0 (0.0-0.2) % Sodium 133 L (137-145) mmol/L Potassium 3.6 (3.4-5.0) mmol/L Chloride 103 (98-107) mmol/L Carbon Dioxide 23 (22-30) mmol/L Anion Gap 7 (4-12) mmol/L BUN 12 (7-17) mg/dL Creatinine 0.53 L (0.7-1.0) mg/dL Estim Creat Clear Calc 142 ml/min Estimated GFR > 60 (59 - ) Glucose 110 (65-110) mg/dL Calcium 9.1 (8.4-10.2) mg/dL Total Bilirubin 0.5 (0.2-1.3) mg/dL AST 20 (14-36) U/L ALT 15 (6-35) U/L Alkaline Phosphatase 61 (38-126) U/L Total Protein 7.1 (6.3-8.2) g/dL Albumin 3.9 (3.5-5.1) g/dL Lipase 77 (23-300) U/L Beta HCG, Quant 46294.00 mIU/ML Urine Color Yellow (Yellow) Urine Appearance Cloudy H (Clear) Urine pH 5.0 (5.0-9.0) Ur Specific [place] 1.026 (1.001-1.035) Urine Protein Negative (Negative) mg/dL Urine Glucose (UA) Negative (Negative) mg/dL Urine Ketones 3+ H (Negative) mg/dL Ur Blood (Man) Negative (Negative) Urine Nitrate Negative (Negative) Urine Bilirubin Negative (Negative) Urine Urobilinogen 1.0 (<2.0) mg/dL Add Ur Microanalysis Reviewed Leukocyte Esterase Rfl 2+ H (Negative) USZANNE/UL Urine RBC 0-2 (0-2) /hpf Urine WBC 0-5 (0-3) /hpf Ur Squamous Epith Cells Occasional (Few) /hpf Urine Bacteria Rare /hpf Urine Casts 0-2 POC Urine HCG, Qual Positive (Negative) C. trachomatis (PCR) Not detected (NOT DETECTE) N. gonorrhoeae (PCR) Not detected (NOT DETECTE) T. vaginalis (PCR) Not detected (NOT DETECTE) Imaging Data Attestation: I personally reviewed and interpreted this imaging study as follows: Radiologist's impression: Patient's ultrasound indicates a single intrauterine gestation identified with a yolk sac and pole noted. Positive heart tones averaging 168 beats per minute. The crown-rump length is consistent with 8 weeks and 5 days. Estimated date of delivery is 11/30/2025. Crescentic hypoechoic area adjacent to the gestational sac measuring 1.2 x 0.7 x 2.2 cm, consistent with subchorionic hemorrhage. Discharge Plan Discharge Clinical Impression: Confirmed intrauterine on ultrasound, Vaginal yeast infection, Subchorionic hematoma in first trimester, Nausea and vomiting during , Dehydration, mild Patient Disposition: Home Condition: Stable Instructions: Antibiotic Form, Subchorionic Hemorrhage (ED), at 7 to 10 Weeks (ED) Additional Instructions: Please return to the ER with any worsening symptoms. Follow-up with your OBGYN as soon as possible. Please remember to drink lots of water. You may take Zofran as needed for nausea. Please take Tylenol as needed for pain control. Complete your full week prescription of yeast medication. Patient Language: Togolese Prescriptions: New clotrimazole [Clotrimazole-7] 1 % cream 1 appful vaginal HS Qty: 45 0RF ondansetron 4 mg tablet,disintegrating 4 mg PO Q8H PRN (Reason: nausea and vomiting) Qty: 30 0RF No Action Lo Loestrin Fe 1 mg-10 mcg (24)/10 mcg (2) tablet 1 tablet PO DAILY Qty: 84 1RF Follow-up/Referrals: Brown,Jessica Anderson, SUPPORT MERCHANDISER [Primary Care Provider, Unknown] Stand Alone Forms: Work/School Release IP Time of Disposition: 04:10
[2025-04-25 00:26] VITALS: BP 115/78; PULSE 86; RESP 20; O2SAT 99
[2025-04-25 00:41] LABS: Hematocrit 32.8 % (37.0-47.0); Hemoglobin 10.6 g/dL (12.0-15.0); Immature Granulocyte Percent A 0.3 % (0-0.5); Lymphocytes Absolute Auto 2.17 K/mm3 (0.9-3.2); Mean Corpuscular HGB Conc 32.3 g/dl (32-36); Mean Corpuscular Hemoglobin 26.3 pg (26-34); Mean Corpuscular Volume 81.4 fl (80-100); Nucleated Red Blood Cells Absolute Auto 0.000 K/mm3 (0.0-0.012); Nucleated Red Blood Cells Perc 0.0 % (0.0-0.2); Platelet Count Result 287 k/mm3 (150-375); Red Blood Count 4.03 M/mm3 (4.2-5.4); White Blood Count 9.5 K/mm3 (4.5-10.0)
[2025-04-25 00:43] LABS: Add Urine Microscopic? YES; Appearance Urine Cloudy (Clear); Glucose Urine UA Negative (Negative); Leukocyte Esterase Ur 2+ LEU/UL (Negative); Need Manual Microscopic Reviewed; Nitrate Urine Negative (Negative); Non Pathogenic Casts 0-2; Specific Grav Ur 1.026 (1.001-1.035)
[2025-04-25 00:56] LABS: BEDSIDEPREGUCG Positive (Negative)
[2025-04-25 00:56] LABS: Alanine Aminotransferase 15 U/L (6-35); Albumin Level 3.9 g/dL (3.5-5.1); Alkaline Phosphatase 61 U/L (38-126); Anion Gap 7 mmol/L (4-12); Aspartate Amino Transferase 20 U/L (14-36); Bilirubin,Total 0.5 mg/dL (0.2-1.3); Blood Urea Nitrogen 12 mg/dL (7-17); Calcium 9.1 mg/dL (8.4-10.2); Carbon Dioxide 23 mmol/L (22-30); Chloride 103 mmol/L (98-107); Estimated CRCL calculation 142 ml/min; Estimated Glomerular Filt Rate > 60; Glucose 110 mg/dL (65-110); Lipase 77 U/L (23-300); Potassium 3.6 mmol/L (3.4-5.0); Sodium 133 mmol/L (137-145); Total Protein 7.1 g/dL (6.3-8.2)
[2025-04-25 01:32] LABS: Trichomonas Vag PCR NOT DETECTED (NOT DETECTE)
[2025-04-25] MEDS: ONDANSETRON INJ 4 MG/2 ML VIAL IV PUSH (01:46)
[2025-04-25] MEDS: SODIUM CHLORIDE 0.9% IV 1,000 ML 999 ML IV CONT (01:46)
--- NOTE | 2025-04-25 01:48 | PC.NURSE ---
Radiology notified to page out US to r/o ectopic
[2025-04-25] MEDS: ACETAMINOPHEN 500 MG TABLET 1000 MG PO (01:51)
--- OUTSIDE RECORDS SUMMARY | 2025-04-25 02:02 | XMS_ITS | Data Portability ---
Author Organization [facility] [employer] Main Office Address [address] [place] [address] Assessment No assessment recorded. Plan of Treatment Reminders Order Date Submit Date Provider Last Modified By Organization Details Last Modified Time Details Appointments None recorded. Lab vitamin D, 25-hydroxy, total, serum 2024 025 [facility] (Lab), [address] [place], [address], 5 10:42:21 CT + NG + TV, RNA, unspecified specimen 2024 025 [facility] (Lab), [address] [place], [address], 5 12:20:01 CBC w/ auto diff 2024 025 [facility] (Lab), [address] [place], [address], 5 10:42:19 lipid panel, serum 2024 025 [facility] (Lab), [address] [place], [address], 5 10:42:14 CMP, serum or plasma 2024 025 [facility] (Lab), [address] [place], [address], 5 10:42:17 TSH, serum or plasma 2024 025 [facility] (Lab), [address] [place], [address], 5 10:42:22 hepatitis C virus Ab, serum 2024 025 [facility] (Lab), [address] [place], [address], 5 10:42:20 lipid panel, serum 2023 024 [email or web address] 4 [facility] (Lab), [address] [place], [address], 4 09:51:41 vitamin D, 1,25-dihydr oxy, serum 2023 024 [email or web address] 4 [facility] (Lab), [address] [place], [address], 4 09:52:00 CMP, serum or plasma 2023 024 [email or web address] 4 [facility] (Lab), [address] [place], [address], 4 09:52:25 TSH, serum or plasma 2023 024 [email or web address] 4 [facility] (Lab), [address] [place], [address], 4 09:52:41 CBC w/ auto diff 2023 024 [email or web address] 4 [facility] (Lab), [address] [place], [address], 4 09:52:56 glycohemogl obin, total, blood 2023 024 4 [facility] ([facility]), [address] [place], [address], 09:53:16 Referral None recorded. Procedures None recorded. Surgeries None recorded. Imaging None recorded. Medication Orders ergocalcife rol (vitamin D2) 1,250 mcg (50,000 unit) capsule 2024 025 [facility] [address]25, [address] [facility], [place], [address], 10:39:38 buspirone 10 mg tablet 2024 025 [facility] 2425, [address] [facility], [place], [address], 10:39:37 alprazolam 0.5 mg tablet 2024 025 [facility] 2425, [address] [facility], [place], [address], 10:48:14 buspirone 5 mg tablet 2023 024 [email or web address] 3 [facility] 2425, [address] [facility], [place], [address], 10:40:26 buspirone 5 mg tablet 2023 024 [email or web address] 3 [facility] 2425, [address] [facility], [place], [address], 10:40:26 Patient TargetsNo targets recorded. Patient InstructionsNo instructions recorded. Reason for Referral None Reported. Results Created Date Observation Date Name Description Value Unit Range Abnormal Flag Note LastModifiedBy Organization Detail LastModifiedTime 01/03/2001/03/2025 LIPID PANEL , STAND JENNIFER cholesterol, total 189 mg/dL <200 normal Not Available [facility] [address] [place], [address], 01/03/2025 10:42:14 01/03/20 25 01/03/2025 LIPID PANEL , STAND JENNIFER HDL cholesterol 64 mg/dL > or = 50 normal Not Available [address], [address], 01/03/2025 10:42:14 01/03/20 25 01/03/2025 LIPID PANEL , STAND JENNIFER triglyceride s 55 mg/dL <150 normal Not Available [address], [address], 01/03/2025 10:42:14 01/03/20 25 01/03/2025 LIPID PANEL , STAND JENNIFER LDL-choleste rol 111 mg/dL _(clary c) high Refer ence range : <100 Harshal able range <100 mg/dL for prima ry preve ntion ; <70 mg/dL for patie nts with CHD or diabe tic patie nts with > or = 2 CHD risk facto rs. LDL-C is now calcu lated using the Cinthya n-Hop kins calcu elzbieta n, which is a valid ated novel drisso d provi kenny tarik r accur acy than the Fried airam equat ion in the estim ation of LDL-C . Cinthya lakhani SS et al. MARY. 2013; 310(1 9): 2061- 2068 (http ://ed ucati on.Qu Bryant Podimetrics. com/f aq/FA Q164) Not Available [address], [address], 01/03/2025 10:42:14 01/03/20 25 01/03/2025 LIPID PANEL , STAND JENNIFER chol/HDLC ratio 3.0 (calc ) <5.0 normal Not Available [address], [address], 01/03/2025 10:42:14 01/03/20 25 01/03/2025 LIPID PANEL , STAND JENNIFER non HDL cholesterol 125 mg/dL _(clary c) <130 normal For patie nts with diabe halley plus 1 major ASCVD risk facto r, treat ing to a non-H DL-C goal of <100 mg/dL (LDL- C of <70 mg/dL ) is consi sarahd clarence harrell optio n. Not Available [address] [address] [place], [address], 01/03/2025 10:42:14 01/03/20 25 01/03/2025 CHLAM YDIA/ N.JAYCE ORRHO EAE AND T. VAGIN AMAIRANI RNA, QL TMA chlamydia trachomatis RNA, tma, urogenital NOT DETECT ED not detect ed normal Not Available [address], [address], 01/03/2025 10:42:16 01/03/20 25 01/03/2025 CHLAM YDIA/ N.JAYCE ORRHO EAE AND T. VAGIN AMAIRANI RNA, QL TMA neisseria gonorrhoeae RNA, tma, urogenital NOT DETECT ED not detect ed normal Not Available [address], [address], 01/03/2025 10:42:16 01/03/20 25 01/03/2025 CHLAM YDIA/ N.JAYCE ORRHO EAE AND T. VAGIN AMAIRANI RNA, QL TMA comment The wes tical perfo rmanc e graeme cteri stics of this assay , when used to test SureP ath(T M) speci mens have been deter mined by [facility]. The modif icati ons have not been clear ed or appro alexander by the FDA. This assay has been valid ated pursu ant to the CLIA regul ation s and is used for clini clary purpo ses. For addit ional sara choe e refer to https ://ed ucati on.qu estdi agnKudos Knowledge tics. com/f aq/FA Q154 (This link is being provi ded for infodelfino lakhani/ la kearney purpo ses only. ) Not Available [address], [address], 01/03/2025 10:42:16 01/03/20 25 01/03/2025 CHLAM YDIA/ N.JAYCE ORRHO EAE AND T. VAGIN AMAIRANI RNA, QL TMA trichomonas vaginalis RNA, ql tma NOT DETECT ED not detect ed normal For addit ional infor sara mccann e refer to http: //[facility] stella priceque stdia gnost ics.c om/ faq/T terra painter tma (This link is being provi ded for infor reyna ochoa/ educa emeka kearney purpo ses only. ) Not Available [address], [address], 01/03/2025 10:42:16 01/03/20 25 01/03/2025 COMPR EHENS LENORA METAB OLIC PANEL glucose 81 mg/dL 65-99 normal Fasti ng refer ence inter ray Not Available [address], [address], 01/03/2025 10:42:17 01/03/20 25 01/03/2025 COMPR EHENS LENORA METAB OLIC PANEL urea nitrogen (BUN) 13 mg/dL 7-25 normal Not Available [address], [address], 01/03/2025 10:42:17 01/03/20 25 01/03/2025 COMPR EHENS LENORA METAB OLIC PANEL creatinine 0.58 mg/dL 0.50-0 .96 normal Not Available [address], [address], 01/03/2025 10:42:17 01/03/20 25 01/03/2025 COMPR EHENS LENORA METAB OLIC PANEL eGFR 126 mL/mi n/1.7 3m2 > or = 60 normal Not Available [address], [address], 01/03/2025 10:42:17 01/03/20 25 01/03/2025 COMPR EHENS LENORA METAB OLIC PANEL BUN/creatini ne ratio SEE NOTE: (calc ) 6-22 Not Repor monica: BUN and Creat inine are withi n refer ence range . Not Available [address], [address], 01/03/2025 10:42:17 01/03/20 25 01/03/2025 COMPR EHENS LENORA METAB OLIC PANEL sodium 139 mmol/ L 135-14 6 normal Not Available [address], [address], 01/03/2025 10:42:17 01/03/20 25 01/03/2025 COMPR EHENS LENORA METAB OLIC PANEL potassium 4.1 mmol/ L 3.5-5. 3 normal Not Available [address], [address], 01/03/2025 10:42:17 01/03/20 25 01/03/2025 COMPR EHENS LENORA METAB OLIC PANEL chloride 104 mmol/ L 98-110 normal Not Available [address], [address], 01/03/2025 10:42:17 01/03/20 25 01/03/2025 COMPR EHENS LENORA METAB OLIC PANEL carbon dioxide 29 mmol/ L 20-32 normal Not Available [address], [address], 01/03/2025 10:42:17 01/03/20 25 01/03/2025 COMPR EHENS LENORA METAB OLIC PANEL calcium 9.3 mg/dL 8.6-10 .2 normal Not Available [address], [address], 01/03/2025 10:42:17 01/03/20 25 01/03/2025 COMPR EHENS LENORA METAB OLIC PANEL protein, total 7.5 g/dL 6.1-8. 1 normal Not Available [address], [address], 01/03/2025 10:42:17 01/03/20 25 01/03/2025 COMPR EHENS LENORA METAB OLIC PANEL albumin 4.4 g/dL 3.6-5. 1 normal Not Available [address], [address], 01/03/2025 10:42:17 01/03/20 25 01/03/2025 COMPR EHENS LENORA METAB OLIC PANEL globulin 3.1 g/dL_ (calc ) 1.9-3. 7 normal Not Available [address], [address], 01/03/2025 10:42:17 01/03/20 25 01/03/2025 COMPR EHENS LENORA METAB OLIC PANEL albumin/glob ulin ratio 1.4 (calc ) 1.0-2. 5 normal Not Available [address], [address], 01/03/2025 10:42:17 01/03/20 25 01/03/2025 COMPR EHENS LENORA METAB OLIC PANEL bilirubin, total 0.8 mg/dL 0.2-1. 2 normal Not Available [address], [address], 01/03/2025 10:42:17 01/03/20 25 01/03/2025 COMPR EHENS LENORA METAB OLIC PANEL alkaline phosphatase 62 U/L 31-125 normal Not Available [facility] Any[employer] [address], [address], 01/03/2025 10:42:17 01/03/20 25 01/03/2025 COMPR EHENS LENORA METAB OLIC PANEL AST 14 U/L 10-30 normal Not Available [address], [address], 01/03/2025 10:42:17 01/03/20 25 01/03/2025 COMPR EHENS LENORA METAB OLIC PANEL ALT 9 U/L 6-29 normal Not Available [address], [address], 01/03/2025 10:42:17 01/03/20 25 01/03/2025 CBC (INCL UDES DIFF/ PLT) white blood cell count 5.5 thous and/u L 3.8-10 .8 normal Not Available [address], [address], 01/03/2025 10:42:18 01/03/20 25 01/03/2025 CBC (INCL UDES DIFF/ PLT) red blood cell count 4.39 carlita on/uL 3.80-5 .10 normal Not Available [address], [address], 01/03/2025 10:42:18 01/03/20 25 01/03/2025 CBC (INCL UDES DIFF/ PLT) hemoglobin 11.3 g/dL 11.7-1 5.5 low Not Available [address], [address], 01/03/2025 10:42:18 01/03/20 25 01/03/2025 CBC (INCL UDES DIFF/ PLT) hematocrit 36.7 % 35.0-4 5.0 normal Not Available [address], [address], 01/03/2025 10:42:18 01/03/20 25 01/03/2025 CBC (INCL UDES DIFF/ PLT) MCV 83.6 fL 80.0-1 00.0 normal Not Available [address], [address], 01/03/2025 10:42:18 01/03/20 01/03/2025 CBC (INCL UDES DIFF/ PLT) MCH 25.7 pg 27.0-3 3.0 low Not Available [facility] [address], [address], 01/03/2025 10:42:18 01/03/20 25 01/03/2025 CBC (INCL UDES DIFF/ PLT) MCHC 30.8 g/dL 32.0-3 6.0 low For adult s, a sligh t decre ase in the calcu lated MCHC value (in the range of 30 to 32 g/dL) is most likel y not clini amparo signi fican t; concepcion er, it shoul d be inter prete d with cauti on in [facility] n with other red cell tia eters and the patie nt's clini clary condi tion. Not Available [facility] [address], [address], 01/03/2025 10:42:18 01/03/2001/03/2025 CBC (INCL UDES DIFF/ PLT) RDW 15.7 % 11.0-1 5.0 high Not Available [employer] [address], [address], 01/03/2025 10:42:18 01/03/2001/03/2025 CBC (INCL UDES DIFF/ PLT) platelet count 338 thous and/u L 140-40 0 normal Not Available [facility] [address], [address], 01/03/2025 10:42:18 01/03/2001/03/2025 CBC (INCL UDES DIFF/ PLT) MPV 11.6 fL 7.5-12 .5 normal Not Available [facility] [address], [address], 01/03/2025 10:42:18 01/03/2001/03/2025 CBC (INCL UDES DIFF/ PLT) absolute neutrophils 3009 cells /uL 1500-7 800 normal Not Available [facility] [place] [address] [address], [place], [address], 01/03/2025 10:42:18 01/03/20 25 01/03/2025 CBC (INCL UDES DIFF/ PLT) absolute lymphocytes 1892 cells /uL 850-39 00 normal Not Available [address], [address], 01/03/2025 10:42:18 01/03/20 25 01/03/2025 CBC (INCL UDES DIFF/ PLT) absolute monocytes 358 cells /uL 200-95 0 normal Not Available [address], [address], 01/03/2025 10:42:18 01/03/20 25 01/03/2025 CBC (INCL UDES DIFF/ PLT) absolute eosinophils 182 cells /uL 15-500 normal Not Available [address], [address], 01/03/2025 10:42:18 01/03/20 25 01/03/2025 CBC (INCL UDES DIFF/ PLT) absolute basophils 61 cells /uL 0-200 normal Not Available [address], [address], 01/03/2025 10:42:18 01/03/2001/03/2025 CBC (INCL UDES DIFF/ PLT) neutrophils 54.7 % normal Not Available [address], [address], 01/03/2025 10:42:18 01/03/20 25 01/03/2025 CBC (INCL UDES DIFF/ PLT) lymphocytes 34.4 % normal Not Available [address], [address], 01/03/2025 10:42:18 01/03/20 25 01/03/2025 CBC (INCL UDES DIFF/ PLT) monocytes 6.5 % normal Not Available [facility] [address] [address] [place], [address], 01/03/2025 10:42:18 01/03/2001/03/2025 CBC (INCL UDES DIFF/ PLT) eosinophils 3.3 % normal Not Available [facility] [address] [address] [place], [address], 01/03/2025 10:42:18 01/03/2001/03/2025 CBC (INCL UDES DIFF/ PLT) basophils 1.1 % normal Not Available [facility] [address] [address] [place], [address], 01/03/2025 10:42:18 01/03/2001/03/2025 HEPAT ITIS C AB W/REF L TO HCV RNA, QN, PCR hepatitis C antibody NON-RE ACTIVE non-re active normal HCV antib fransisco was non-r eacti ve. There is no labor atory evide nce of HCV infec tion. In most cases , no furth er actio n is requi red. Howev er, if recen t HCV expos ure is suspe cted, a test for HCV RNA (test code 52233 ) is sugge sted. For addit ional infor reyna lakhani pleas e refer to http: //[facility] stella zaragoza stdia gnost ics.c om/fa q/FAQ 22v1 (This link is being provi ded for infor reyna ochoa/ educa emeka l purpo ses only. ) Not Available [facility] [address] [address] [place], [address], 01/03/2025 10:42:20 01/03/2001/03/2025 VITAM IN D,25- OH,TO LIANE,I A vitamin D,25-oh,tota l,ia 28 NG/mL 30-100 low Vitam in D Statu s 25-OH Vitam in D: Defic iency : <20 ng/mL Insuf ficie ncy: 20 - 29 ng/mL Optim al: > or = 30 ng/mL For 25-OH Vitam in D testi ng on patie nts on D2-almanza pplem entat ion and patie nts for whom quant itati on of D2 and D3 fract ions is requi red, the [facility](TM ) 25-OH VIT D, (D2,D 3), LC/MS /MS is recom roger d: order code 54545 (mindy ents >2yrs ). See Note 1 Note 1 For addit ional infor sara mccann refer to http: //[facility] stella lakhani.Que stDia gnost ics.c om/fa q/FAQ 199 (This link is being provi ded for infor reyna ochoa/ educclarence kearney purpo ses only. ) Not Available [facility] [address] [place], [address], 01/03/2025 10:42:21 01/03/20 25 01/03/2025 TSH W/REF SKIP TO FT4 TSH w/reflex to FT4 1.10 mIU/L normal Refer ence Range > or = 20 Years 0.40- 4.50 Pregn amrik Range s First trime ster 0.26- 2.66 Secon d trime ster 0.55- 2.73 Third trime ster 0.43- 2.91 Not Available [facility] [address] , [place], [address], 01/03/2025 10:42:22 11/15/19 23 11/14/2022 US, pelvi s, compl ete No observ ation record ed. [address] [facility] [address], [place], [address], 11/15/2022 18:25:30 Result Notes None recorded. Problems Name Problem SNOMED Code Status Onset Date Resolution Date Notes Provider Name and Address Organization Details Recorded Time Fibromyalgia 809129918 Active 2021 Not Available [employer] 3 01:49:00 Anxiety 98734290 Active 2023 ELIZABETH Crabtree [address] [place] [address], [address], [place], [address] , [facility] [employer] [facility] 4 15:48:25 Vitamin D deficiency 55156990 Active 2023 ELIZABETH Crabtree [address], [facility] [address], [place], [address] , [facility] [employer] [facility] 4 15:41:07 Body mass index 25-29 - overweight 588996593 Active 2024 ELIZABETH Crabtree [address], [facility] [address], [place], [address] , [facility] [employer] [facility] 5 10:54:07 Problem Notes None recorded. Medical Equipment None Reported. Allergies No known drug allergies Medications Name Sig Start Date Stop Date Status Note LastModified by Organization Details LastModified Time buspirone 5 mg tablet Take 1 tablet twice a day by oral route. 01/02 completed Not Available Not Available Not Available phenazopyri dine 200 mg tablet TAKE 1 TABLET BY MOUTH THREE TIMES DAILY FOR 6 DOSES NEEDED FOR PAIN. WILL TURN YOUR URINE RED 01/31 completed Not Available Not Available Not Available metronidazo le 500 mg tablet TAKE 1 TABLET BY MOUTH TWICE DAILY FOR 7 DAYS 04/26 completed Not Available Not Available Not Available alprazolam 0.5 mg tablet TAKE 1 TABLET BY MOUTH TWICE DAILY NEEDED active Not Available Not Available No t Available buspirone 10 mg tablet TAKE 1 TABLET BY MOUTH TWICE DAILY active Not Available Not Available No t Available promethazin e 25 mg tablet TAKE [...] (vitamin D2) 1,250 mcg (50,000 unit) capsule TAKE 1 CAPSULE BY MOUTH ONCE A WEEK active Not Available Not Available No t [...] Available Not Available Vitals Date Recorded Body height Body mass index (BMI) Body weight Body temperature Heart rate Oxygen saturation Oxygen saturation in Arterial blood by Pulse oximetry Systolic And Diastolic Provider Name and Address Organization Details Last Updated DateTime 5 167.64 cm 27.9 kg/m2 91448.4 8 g 97.5 [degF] 79 /min 98 % 98 % 116/80 mm[Hg] AUSTIN Chirinos [facility] [employer] [facility] 5 10:26:39 Date Recorded Body weight Body mass index (BMI) Body height Body temperature Heart rate Oxygen saturation Oxygen saturation in Arterial blood by Pulse oximetry Systolic And Diastolic Provider Name and Address Organization Details Last Updated DateTime 4 19782.5 2 g 27.1 kg/m2 167.64 cm 98.2 [degF] 88 /min 98 % 98 % 118/80 mm[Hg] Neel Castelan RN [facility] [employer] [facility] 4 15:07:56 Date Recorded Body height Body mass index (BMI) Body weight Body temperature Heart rate Oxygen saturation Oxygen saturation in Arterial blood by Pulse oximetry Systolic And Diastolic Provider Name and Address Organization Details Last Updated DateTime 4 167.64 cm 27.4 kg/m2 96994.7 g 97.2 [degF] 90 /min 95 % 95 % 124/80 mm[Hg] eNel Castelan RN [facility] [employer] [facility] 4 09:04:42 Date Recorded Body mass index (BMI) Body height Oxygen saturation Oxygen saturation in Arterial blood by Pulse oximetry Heart rate Body temperature Body weight Systolic And Diastolic Provider Name and Address Organization Details Last Updated DateTime 2 24.9 kg/m2 167.64 cm 98 % 98 % 72 /min 96.2 [degF] 95812.2 2 g 128/70 mm[Hg] Not Available [facility] 01:48:30 Social History Question Answer Notes LastModified by Organizat ion Details LastModified Time Tobacco Smoking Status Never Smoker Not Available [facility] 08/05/2022 01:47:28 If You Are , What Was Your Level Of Alcohol Consumption Prior To ? None [id number] Information not available 08/05/2022 What Is Your Level Of Caffeine Consumption? Occasional [id number] Information not available 08/05/2022 In The 14 Days Before Symptom Onset, Have You Had Close Contact With A Laboratory-confir med COVID-19 While That Case Was Ill? No [id number] Information not available 08/05/2022 In The 14 Days Before Symptom Onset, Have You Had Close Contact With A Person Who Is Under Investigation For COVID-19 While That Person Was Ill? No [id number] Information not available 08/05/2022 What Type Of Diet Are You Following? REGULAR [id number] Information not available 08/05/2022 Do You Use Insect Repellent Routinely? Yes Information not available 01/02/2025 Where Do You Live? [facility] Information not available 01/02/2025 What Was The Date Of Your Most Recent Tobacco Screening? 01/02/2025 Information not available 01/02/2025 How Many Children Do You Have? 1 Information not available 01/02/2025 Have You Ever Been Counseled For Unhealthy Alcohol Use? No [id number] Information not available 08/05/2022 Do You Have Any Pets? No Information not available 01/02/2025 What Is Your Relationship Status? Single Information not available 01/02/2025 Do You Use Your Seat Belt Or Car Seat Routinely? Yes Information not available 01/02/2025 Do You Have Smoke And Carbon Monoxide Detectors In Your Home? Yes Information not available 01/02/2025 Are There Any Smokers In Your House? No Information not available 01/02/2025 Do You Participate In Social Media? Yes Information not available 01/02/2025 Do You Use Sunscreen Routinely? Yes Information not available 01/02/2025 Has Tobacco Cessation Counseling Been Provided? No [id number] Information not available 08/05/2022 Have You Recently Traveled Abroad? No Information not available 01/02/2025 Do You Have Any Dietary Restrictions? No [id number] Information not available 08/05/2022 Sex: Unknown Functional Status Question Answer Note LastModified by Organizat ion Details LastModified Time Do you use any illicit or recreational drugs? No [id number] Information not available 08/05/2022 Do you or have you ever used any other forms of tobacco or nicotine? No [id number] 026 Information not available 08/05/2022 What is your level of alcohol consumption? Occasional [id number] 026 Information not available 08/05/2022 Are you currently employed? Yes Information not available 01/02/2025 What is your exercise level? Moderate [id number] 026 Information not available 08/05/2022 Mental Status Question Answer Note LastModified by Organization D etails LastModified Time Do you feel stressed (tense, restless, nervous, or anxious, or unable to sleep at night)? [id number] Information not available 01/02/2025 Family History Nothing Reported. Medical History No medical history recorded. Gynecological History Statement/Question Response Date of LMP 12/31/2024 Sexually Active? Y Menses Monthly Y STIs/STDs N Current Control Method None Breast Problems no Discharge no Obstetrics History GPAL:G 1 P 0 0 0 1 Type Value Living 1 Total 1 Past Encounters Encounter ID Performer Location Encounter Start Date Encounter Closed Date Diagnosis/Indication Diagnosis SNOMED-CT Code Diagnosis ICD10 Code Diagnosis IMO Codes Diagnosis Note [id number] [facility] [address] [facility] [address] [place] [address] 2022 00:00:00 2022 14:00:50 [id number] [facility] [place] [address] [place] [address] 05/24/2022 00:00:00 05/24/2022 10:05:44 [id number] ELIZABETH Crabtree [facility] Primary Care [address] [place] [address] 02/01/2024 14:58:39 02/01/2024 16:00:31 Anxiety 62823225 F41.9 GÓMEZ-7(15 1).Discuss ed stress relievers such as going for a walk, sitting in a quiet room, listening to calming music.Will start treatment as listed below, patient will follow up in one month, sooner if needed.Den ies SI/HI.Disc ussed potential FMLA-patie nt will contact HR. Adult heal th examination 098241658 Z00.00 Discussed healthy diet and routine exercise.D iscussed annual screening labs, will order as listed below.Disc ussed routine eye and dental exams. Body mass index 25-29 - overweight 940235339 Z68.27 Discussed healthy diet and routine exercise. [id number] ELIZABETH Crabtree [facility] Primary Care [address] [place] [address] 02/02/2024 09:12:15 02/02/2024 09:56:22 [id number] ELIZABETH Crabtree [facility] Primary Care [address] [place] [address] 03/20/2024 08:54:33 03/20/2024 09:20:41 Anxiety 13120964 F41.9 Doing much better since starting Buspirone, will continue to fill as needed.Den ies SI/HI. [id number] ELIZABETH Crabtree [facility] Primary Care [place] [address] [place] [address] 01/02/2025 10:12:21 01/02/2025 10:50:53 Adult health examination 384660448 Z00.00 Z13.29 Z13.6 [id number] Discussed medication compliance and routine follow up.Discuss ed healthy diet and routine exercise.Delfino enriqueiewed vaccine records and made recommenda tions as needed.Enc ouraged annual eye and dental exams, as well as twice yearly dental cleanings. Will check screening labs as listed below. Viral scre ening status 044918437 Z11.59 [id number] Anxiety 26070364 F41.9 Doing much better since starting Buspirone, will continue to fill as needed.Den ies SI/HI. Vitamin D deficiency [id number] E55.9 Venereal d isease screening [id number] Z11.3 065264 Body mass index 25-29 - overweight [id number] E66.3 [id number] Weight: 173 poundsBMI: 27.9Discus sed healthy diet and routine exercise. Health Concerns Section Related Observation LastModified by Organization Detai ls LastModified Time None Recorded Concern Status LastModified by Organization Details LastModified Time None Recorded Advance Directives Directive None Recorded Payers Insurance Date Sequence Insurance Name Policy Number Policy Ashby Covered Member ID Ashby Member ID Guarantor Name 03/20/2024 1 [place] [id number] Patricia Quintero [id number] Patricia Quintero 03/20/2024 1 [place] [id number] Patricia Quintero [id number] Patricia Quintero 01/02/2025 1 *SELF PAY* Zeina Quintero 02/04/2025 1 [facility] [id number] Patricia Quintero [id number] Patricia Quintero Notes Date Note Type Note Provider Name and Address Organization Details Recorded Time 02/01/2024 text/html ROS as noted in the HPI Patient is a 28 year old female that presents to the office for annual wellness. Patient reports concerns with stress and anxiety. 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 Patient reports work is majorly short staffed, [...] but nothing pays as well. 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 eye-Decemberental-not UTD. nltz-gvqqajnCLE-jo st year at [facility]renthoodFlu-decl inesCovid-declines Tdap-aware ELIZABETH Crabtree [address], [address], [place], [address], [employer] 02/01/2024 22:18:55 03/20/2024 text/html ROS as noted in the HPI Patient is a 28 year old female [...] concerns at this time. ELIZABETH Crabtree [address], [address], [place], [address], [employer] 03/20/2024 23:04:25 01/02/2025 text/html Patient is a 29 year old female that presents to the office for annual wellness. 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 labs-orderedWWE- UTDMammogram-age 41Colonoscopy- age 46Flu- declinesCovid- declinesTdap- aware ELIAZBETH Crabtree [address], [address], [place], [address], [employer] 01/02/2025 10:54:44 OBGyn Episode No OBEpisode recorded.
--- OUTSIDE RECORDS SUMMARY | 2025-04-25 02:02 | XMS_ITS | Encounter Summary ---
Author Organization [facility] Health Address [address] [place] [address] Care Team Providers Care Data Entry Supervisor Name Role Phone Unavailable Primary Care Provider Unavailabl e Prior Encounters Date Type Department Care Team Description 06/15/2022 11:30 AM SQL ETL DEVELOPER Office Visit [facility] [address] [place] [address] Silvia Harvey DDS 06/14/2022 8:30 AM SQL ETL DEVELOPER Office Visit [facility] [address] [place] [address] Silvia Harvey DDS 05/17/2022 Travel 05/17/2022 9:30 AM SQL ETL DEVELOPER Office Visit [facility] [address] [place] [address] Silvia Harvey DDS 11/23/2021 Travel 11/23/2021 9:00 AM CDT Office Visit [facility] [address] [place] [address] Rishi Greene DDS 11/09/2021 9:00 AM CDT Office Visit [facility] [address] [place] [address] Rishi Greene DDS 11/09/2021 9:00 AM CDT Office Visit [facility] [address] [place] [address] Ana Cristina Barton RDH 05/04/2021 Travel 05/04/2021 8:00 AM SQL ETL DEVELOPER Office Visit [facility] [address] [place] [address] Diane Juarez, DMD 05/04/2021 8:00 AM SQL ETL DEVELOPER Office Visit [facility] [address] [place] [address] Ana Cristina Barton, [facility] 06/25/2019 Converted 13x Documents [facility] [address] [place] [address] <No scans attached> 06/25/2019 Converted CPS Chart Documents [facility] [address] [place] [address] <No scans attached> Last Filed Vital Signs Vital Sign Reading Time Taken Comments Blood Pressure 106/71 06/15/2022 11:21 AM SQL ETL DEVELOPER Pulse 80 06/15/2022 11:21 AM SQL ETL DEVELOPER Temperature 35.8 C (96.4 F) 05/04/2021 8:13 AM SQL ETL DEVELOPER Respiratory Rate - - Oxygen Saturation - - Inhaled Oxygen Concentration - - Weight - - Height - - Body Mass Index - - Plan of Treatment Not on file Procedures Procedure Name Priority Date/Time Associated Diagnosis Comments RE-EVALUATION POST-OPERATIVE OFFICE VISIT Routine 06/15/2022 11:30 AM SQL ETL DEVELOPER 2 DANIEL RESIN-BASED COMPOSITE - THREE SURFACES, POSTERIOR Routine 06/14/2022 8:30 AM SQL ETL DEVELOPER 3 LO RESIN-BASED COMPOSITE - TWO SURFACES, POSTERIOR Routine 06/14/2022 8:30 AM SQL ETL DEVELOPER 14 LO RESIN-BASED COMPOSITE - TWO SURFACES, POSTERIOR Routine 06/14/2022 8:30 AM SQL ETL DEVELOPER PERIODIC ORAL EVALUATION - ESTABLISHED PATIENT Routine 05/17/2022 9:30 AM SQL ETL DEVELOPER PROPHYLAXIS - ADULT Routine 05/17/2022 9 :30 AM SQL ETL DEVELOPER BITEWINGS - FOUR RADIOGRAPHIC IMAGES Routine 05/17/2022 9:30 AM SQL ETL DEVELOPER 18 CARMEN RESIN-BASED COMPOSITE - TWO SURFACES, [...] ORAL HYGIENE INSTRUCTIONS Routine 2020 8:00 AM SQL ETL DEVELOPER TOPICAL APPLICATION OF FLUORIDE VARNISH Routine 05/04/2021 8:00 AM SQL ETL DEVELOPER PROPHYLAXIS - ADULT Routine 05/04/2021 8 :00 AM SQL ETL DEVELOPER PERIODIC ORAL EVALUATION - ESTABLISHED PATIENT Routine 05/04/2021 8:00 AM SQL ETL DEVELOPER ORAL HYGIENE INSTRUCTIONS Routine 2020 2:00 AM [...] Diagnoses Not on file Insurance [facility] [place] PPO
--- OUTSIDE RECORDS SUMMARY | 2025-04-25 02:02 | XMS_ITS | Clinical Summary ---
Author Organization [facility] Health Address [address] [place] [address] Care Team Providers Care Nicking Machine Operator Name Role Phone Unavailable Primary Care Provider [...] Comments Blood Pressure 106/71 06/15/2022 11:21 AM CORPORATE TRAVEL CONSULTANT Pulse 80 06/15/2022 11:21 AM CORPORATE TRAVEL CONSULTANT Temperature 35.8 C (96.4 F) 05/04/2021 8:13 AM CORPORATE TRAVEL CONSULTANT Respiratory Rate - - Oxygen Saturation - [...] - ADULT Routine 05/17/2022 9 :30 AM CORPORATE TRAVEL CONSULTANT PERIODIC ORAL EVALUATION - ESTABLISHED PATIENT Routine 05/17/2022 9:30 AM CORPORATE TRAVEL CONSULTANT PANORAMIC RADIOGRAPHIC IMAGE Routine 10/29/2020 2:00 AM CDT INTRAORAL - COMPREHENSIVE SERIES OF RADIOGRAPHIC IMAGES Routine 10/29/2020 2:00 AM CDT from Last 3 Months or Most Recently Relevant to Health Maintenance Insurance [facility] [place] [facility] [place] PPO
[2025-04-25 03:19] VITALS: BP 119/76; PULSE 88; RESP 18; O2SAT 98
[2025-04-25 04:49] VITALS: BP 117/72; PULSE 83; RESP 16; O2SAT 100
[2025-04-25 05:06] VITALS: BP 117/72; PULSE 83; RESP 16; O2SAT 100
== END 2025-04-25 05:13 | disposition home or self-care (01) ==
PROVIDERS: Emergency Provider Registered Nurse; PCP Nurse Practitioner Family
DX: O98.811 Other maternal infectious and parasitic diseases complicating pregnancy, first trimester (principal); O21.0 Mild hyperemesis gravidarum; E86.0 Dehydration; Z3A.08 8 weeks gestation of pregnancy
CPT/HCPCS: 36415; 76801; 80053; 81001; 81025; 83690; 84702; 85025; 87086; 87491; 87591; 87661; 96361; 96374; 99284; A9270; J2405; J7030